=== PATIENT | female | born 2005 | race Caucasian/White ===

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

== ENCOUNTER 2023-01-05 18:31 | Emergency (ER) | payer OTHER, SELFPAY ==
--- NOTE | ~2023-01-05 | US_ITS ---
EXAMINATION: US PELVIS CLINICAL INFORMATION: Lower abdominal pain; question ovarian torsion; the last menstrual period was 12/24/2022. COMPARISON: Pelvic ultrasound dated 12/07/2020. TECHNIQUE: Ultrasound of the pelvis is performed using both transabdominal and transvaginal transducers along with Doppler. Transvaginal imaging is performed due to inadequate visualization transabdominally. FINDINGS: Uterus: The uterus is anteverted and measures 6.9 x 3.7 x 3.7 cm. No intrauterine or decidual reaction is noted. The double wall endometrial thickness is 1.4 mm. The uterus is smooth in contour and has normal myometrial echogenicity. No visible fibroid. Adnexa: Both ovaries are visualized. There is normal color flow to the adnexa. There is no ovarian torsion. There is a small to moderate amount of free fluid within the cul-de-sac. Right ovary measures 3.5 x 3.0 x 1.9 cm, volume 10.5 mL. A 1.2 x 1.0 x 1.2 cm right adnexal hypoechoic mass is seen, with peripheral color Doppler flow. Left ovary measures 4.5 x 3.8 x 2.3 cm, volume 20.6 mL. A 2.0 cm left ovarian dominant physiologic simple cyst is seen, which requires no imaging follow-up. US/US pelvic and transvaginal IMPRESSION: 1. A 1.2 cm hypoechoic mass is seen within the right adnexal region. The possibility of an ectopic is raised. Recommend correlation with a test and follow-up ultrasound imaging and/or beta hCG levels as clinically indicated. 2. There is moderate nonspecific free fluid in the cul-de-sac. 3. No finding is seen to suggest ovarian torsion. This critical result was discussed with Dr. Pastor at 9:30 PM on 01/05/2023, and it was ascertained that the content and urgency of this report was understood at the time of direct communication.
--- NOTE | ~2023-01-05 | CT_ITS ---
EXAMINATION: CT ABDOMEN AND PELVIS WITH CONTRAST CLINICAL INFORMATION: Abdominal pain. COMPARISON: Previous CT of the abdomen and pelvis November 2020 and pelvic ultrasound. TECHNIQUE: Multidetector volumetric images were obtained from the superior aspect of the liver through the pubic symphysis following administration 85 mL of Omnipaque 350 intravenous contrast. Sagittal and coronal reformatted images were obtained on the technologist's workstation. Oral Contrast: No. This CT examination was performed using dose optimization techniques as appropriate, variously including the following: *Automated exposure control. *Adjustment of mA and/or kV according to patient size (this includes techniques or standardized protocols for targeted exams where dose is matched to indication/reason for exam; i.e. extremities or head). *Use of iterative reconstruction technique. DLP: 404 mGy-cm FINDINGS: LUNG BASES: The visualized lung bases are unremarkable. LIVER, GALLBLADDER, AND BILIARY TREE: The liver is normal in size, shape, and attenuation. No focal hepatic lesion or biliary ductal dilatation is present. The gallbladder is unremarkable with no evidence of radiopaque gallstones, gallbladder wall thickening, or obvious pericholecystic inflammatory changes. PANCREAS: Unremarkable. SPLEEN: Unremarkable. ADRENAL GLANDS: Unremarkable. KIDNEYS AND URETERS: The kidneys are normal in size, shape, and attenuation. No hydronephrosis, hydroureter, or calculi seen. No perinephric stranding. BLADDER: Unremarkable. GASTROINTESTINAL TRACT: Large bowel is normal. The distal small bowel in the right lower quadrant is slightly distended, fluid-filled and may demonstrate mild increased wall thickening and enhancement. The appendix is not seen. ABDOMINAL WALL: No significant hernia is appreciated. LYMPH NODES: There is small bowel mesentery lymphadenopathy. VASCULAR: Unremarkable. PELVIC VISCERA: The uterus is unremarkable. No adnexal mass is seen. There is a [id number] amount of complex fluid seen in the pelvis. OSSEOUS STRUCTURES: Unremarkable. CT/CT abdomen pelvis w IV con IMPRESSION: [id number] amount of complex fluid in the pelvis. No adnexal mass. Differential would include recent hemorrhagic ruptured ovarian cyst, PID and ectopic . Slightly dilated fluid-filled distal small bowel with slightly thickened enhancing wall.. There are also prominent small bowel mesentery lymph nodes. Mesenteric adenitis and enteritis should also be considered. Appendix not seen. Fleischner guidelines were followed.
--- NOTE | ~2023-01-05 | US_ITS ---
EXAMINATION: US PELVIS CLINICAL INFORMATION: Lower abdominal pain; question ovarian torsion; the last menstrual period was 12/24/2022. COMPARISON: Pelvic ultrasound dated 12/07/2020. TECHNIQUE: Ultrasound of the pelvis is performed using both transabdominal and transvaginal transducers along with Doppler. Transvaginal imaging is performed due to inadequate visualization transabdominally. FINDINGS: Uterus: The uterus is anteverted and measures 6.9 x 3.7 x 3.7 cm. No intrauterine or decidual reaction is noted. The double wall endometrial thickness is 1.4 mm. The uterus is smooth in contour and has normal myometrial echogenicity. No visible fibroid. Adnexa: Both ovaries are visualized. There is normal color flow to the adnexa. There is no ovarian torsion. There is a small to moderate amount of free fluid within the cul-de-sac. Right ovary measures 3.5 x 3.0 x 1.9 cm, volume 10.5 mL. A 1.2 x 1.0 x 1.2 cm right adnexal hypoechoic mass is seen, with peripheral color Doppler flow. Left ovary measures 4.5 x 3.8 x 2.3 cm, volume 20.6 mL. A 2.0 cm left ovarian dominant physiologic simple cyst is seen, which requires no imaging follow-up. US/US pelvic ovarian doppler IMPRESSION: 1. A 1.2 cm hypoechoic mass is seen within the right adnexal region. The possibility of an ectopic is raised. Recommend correlation with a test and follow-up ultrasound imaging and/or beta hCG levels as clinically indicated. 2. There is moderate nonspecific free fluid in the cul-de-sac. 3. No finding is seen to suggest ovarian torsion. This critical result was discussed with Dr. Pastor at 9:30 PM on 01/05/2023, and it was ascertained that the content and urgency of this report was understood at the time of direct communication.
[2023-01-05 18:49] VITALS: BP 98/58; PULSE 91; RESP 16; TEMP 36.1; O2SAT 100; BMI 23.0
[2023-01-05 19:10] LABS: MANUAL DIFF FLAG NO
[2023-01-05 19:12] LABS: Basophils Absolute Auto 0.1 X10*3/uL (0.0-0.2); Basophils Percent Auto 0.6 % (0-2); Eosinophils Absolute Auto 0.2 X10*3/uL (0.0-0.4); Eosinophils Percent Auto 1.8 % (0-4); Hematocrit 39.1 % (37.0-47.0); Hemoglobin 13.2 g/dl (12.0-16.0); Lymphocytes Absolute Auto 2.2 X10*3/uL (1.2-4.9); Lymphocytes Percent Auto 21.3 % (20-40); Mean Corpuscular HGB Conc 33.8 g/dl (31.0-35.0); Mean Corpuscular Hemoglobin 30.8 pg (27.0-33.0); Mean Corpuscular Volume 91.4 fL (80.0-98.0); Mean Platelet Volume 11.4 fL (9.4-12.3); Monocytes Absolute Auto 0.6 X10*3/uL (0.1-1.2); Monocytes Percent Auto 6.1 % (2-11); Neutrophils Absolute Auto 7.1 x10*3/uL (2.0-8.3); Neutrophils Percent Auto 69.2 % (45-73); Platelet Count 274 X10*3/uL (160-400); Red Blood Count 4.28 X10*6/uL (4.20-5.50); Red Cell Distribution Width 12.2 % (11.0-16.0); White Blood Count 10.2 X10*3/uL (4.8-10.8)
[2023-01-05 19:13] LABS: Appearance Urine Clear; Color Urine Yellow; Glucose Urine UA Negative (Negative); Leukocyte Esterase Urine Moderate (2+) (Negative); Nitrite Urine Negative (Negative); UMIC TRIGGER UACC YES; Urine Blood Negative (Negative); Urine Ketones Trace mg/dL (Negative); Urine Protein Negative (Neg-Trace)
[2023-01-05 19:15] LABS: UPreg QC Valid YES; Urine Pregnancy NEGATIVE (NEGATIVE)
[2023-01-05 19:16] LABS: Bacteria Urine Trace (None Seen); Hyaline Casts Urine 0-2 /LPF (0-2); RBC Urine 0-2 /HPF (0-2); UACC Culture Trigger YES
[2023-01-05 19:28] LABS: Alanine Aminotransferase 13 U/L (0-31); Albumin Level 4.5 g/dL (3.5-5.0); Alkaline Phosphatase 74 U/L (39-117); Anion Gap 10 (12-20); Aspartate Amino Transferase 26 U/L (5-31); Bilirubin Total 0.2 mg/dL (0.0-1.0); Blood Urea Nitrogen 11 mg/dL (9-16); Calcium 9.5 mg/dL (8.4-10.2); Carbon Dioxide 26 mmol/L (22-29); Chloride 105 mmol/L (96-108); Creatinine Clr Calc Pharmacy 91.2; Estimated Glomerular Filt Rate > 60; Glucose Random 106 mg/dL (60-115); Lipase 23 U/L (8-78); Potassium 3.6 mmol/L (3.3-5.1); Sodium 137 mmol/L (135-145)
[2023-01-05 19:39] VITALS: BP 110/62; PULSE 99; RESP 18; TEMP 36.5; O2SAT 94
--- NOTE | 2023-01-05 20:08 | ED.ABDPAIN ---
HPI - Abdominal Pain General Chief Complaint: Abdominal Pain Stated Complaint: Lower abd pain Time Seen by Provider: 01/05/23 19:14 History of Present Illness HPI narrative: patient is a 17-year-old female presents today with having abdominal pain. Diffuse over the entire abdomen ongoing for few days. Worse today. There is no vaginal discharge. Patient is sexually active with 1 partner no condoms. Denies any fever chills. Denies any previous abdominal surgery. Positive nausea no vomiting. Patient is from home. No chest pain or diaphoresis Related Data Previous Rx's Medication Instructions Recorded acetaminophen 500 mg tablet 500 mg PO Q6H PRN pain or fever 10/17/20 (Tylenol Extra Strength) #20 tabs ibuprofen 400 mg tablet 400 mg PO Q6H 7 days #28 tabs 10/17/20 amoxicillin 875 mg-potassium 1 tab PO Q12H 5 days #10 tabs 03/15/21 clavulanate 125 mg tablet (Augmentin) dicyclomine 20 mg tablet 20 mg PO QID PRN abdominal pain 06/02/21 #20 tabs ondansetron 4 mg disintegrating 4 mg PO Q6-8H PRN nausea and 06/02/21 tablet vomiting #7 tabs ibuprofen 600 mg tablet 600 mg PO Q6H PRN pain #30 tabs 10/09/21 cyclobenzaprine 10 mg tablet 10 mg PO TID PRN muscle spasm #14 10/31/21 tabs diclofenac sodium 1 % topical gel 2 g topical QID #100 grams 10/31/21 (Voltaren Arthritis Pain) cefuroxime axetil 250 mg tablet 250 mg PO Q12H #14 tabs 12/20/21 loperamide 2 mg tablet (Imodium 2 mg PO Q6H PRN loose stool #14 05/05/22 A-D) tabs ondansetron 4 mg disintegrating 4 mg PO Q6-8H PRN nausea and 05/05/22 tablet vomiting #10 tabs nitrofurantoin 100 mg PO Q12H 5 days #10 caps 10/22/22 monohydrate/macrocrystals 100 mg capsule (Macrobid) phenazopyridine 200 mg tablet 200 mg PO TID PRN Burning with 10/22/22 (Pyridium) urination 6 doses #6 tabs cephalexin 500 mg capsule 500 mg PO Q8H 7 days #21 caps 01/05/23 ibuprofen 400 mg tablet 400 mg PO Q6H PRN pain #20 tabs 01/05/23 Allergies Allergy/AdvReac Type Severity Reaction Status Date / Time No Known Allergies Allergy Verified 12/24/22 14:05 Review of Systems Review of Systems no fever, no chills, positive abdominal oleg,n no discharge Yes all other systems are reviewed and are negative [facility] Past Medical History Attestation statement: The following information was validated with the patient. Medical History Headache Social History Social History (System 12/24/22 @ 14:05 by Ro Rosa) Alcohol intake: current Alcohol intake frequency: holidays/special occasions only Patient Tobacco Use Status: Never used Tobacco Smoked in Last 30 Days: No Substance Use Type: Marijuana Substance Use Frequency: Daily Advance Directives: No Advance Directives Information Provided: No Patient : No Physical Exam ED Vital Signs: Vital Signs - 24 hr 01/05/23 18:49 01/05/23 19:39 01/05/23 21:37 Temperature 97.0 F 97.7 F 98.8 F Pulse Rate 91 99 84 Respiratory Rate 16 18 18 Blood Pressure 98/58 L 110/62 101/62 Pulse Oximetry 100 94 97 Oxygen Delivery Method Room Air Room Air Room Air BMI result Body Mass Index 23.0 Appearance: Alert. Oriented X3. No acute distress. Eyes: Pupils equal, round and reactive to light. ENT: Pharynx normal. Neck: Normal inspection. Neck supple. No lymph nodes noted. No crepitus CVS: Normal heart rate and rhythm. Pulses normal. Normal S1 and S2 Respiratory: No respiratory distress. Breath sounds normal. No Wheezing. No rales Abdomen: Soft and nontender. No rigidity. No distention. good BS x4 Skin: Skin warm and dry. Normal skin color. Normal skin turgor. Extremities: No lower extremity edema. Neurovascular intact to all extremities. No Lacerations. No Rash Neuro: Oriented X 3. No motor deficit. No sensory deficit. Moving all extermities. No slurred speech Medical Decision Making Medical Decision Making MDM Narrative: patient presents today with having diffuse abdominal pain. Her last menstrual period was about 2 weeks ago. White count was normal. Patient's urine showed question UTI. Her test was negative there is no evidence for ectopic . Ultrasound showed good flow to bilateral ovaries. There is a question mass noted next to the ovary. Radiology read it as1. A 1.2 cm hypoechoic mass is seen within the right adnexal region. The possibility of an ectopic is raised. in setting of negative test it is unlikely Patient had an ectopic CT scan of the abdomen pelvis showed no acute evidence of appendicitis. There is small amount of free fluid in the abdomen consistent with having a hemorrhagic cyst which is more likely. Ultrasound also showed no evidence for torsion. Patient denies any vaginal discharge. The pain is diffuse less likely STD. Will treat patient with antibiotic and have patient Differential Diagnosis Differential Diagnoses: The differential diagnosis associated with the presentation includes Appendicitis, ovarian torsion, STD, obstruction, perforation, tubal ovarian abscess Admission/Observation Consideration of admission/observation: Escalation of care including admission/observation considered Lab Data MDM Lab Attestation statement: I reviewed the patient's lab results. 01/05/23 19:04 01/05/23 19:04 Labs: Lab Results 01/05/23 Range/Units 19:04 WBC 10.2 (4.8-10.8) X10*3/uL RBC 4.28 (4.20-5.50) X10*6/uL Hgb 13.2 (12.0-16.0) g/dl Hct 39.1 (37.0-47.0) % MCV 91.4 (80.0-98.0) fL MCH 30.8 (27.0-33.0) pg MCHC 33.8 (31.0-35.0) g/dl RDW 12.2 (11.0-16.0) % Plt Count 274 (160-400) X10*3/uL MPV 11.4 (9.4-12.3) fL Immature Gran % (Auto) 1.0 H (0.0-0.4) % Neut % (Auto) 69.2 (45-73) % Lymph % (Auto) 21.3 (20-40) % [place] % (Auto) 6.1 (2-11) % Eos % (Auto) 1.8 (0-4) % Baso % (Auto) 0.6 (0-2) % Lymph # (Auto) 2.2 (1.2-4.9) X10*3/uL [place] # (Auto) 0.6 (0.1-1.2) X10*3/uL Eos # (Auto) 0.2 (0.0-0.4) X10*3/uL Baso # (Auto) 0.1 (0.0-0.2) X10*3/uL Abs Immat Gran (auto) 0.10 H (0.00-0.03) X10*3/uL Absolute Neuts (auto) 7.1 (2.0-8.3) x10*3/uL Absolute Nucleated RBC 0.000 (0.0-0.012) X10*3/uL Nucleated RBC % (auto) 0.0 (0.0-0.2) /100WBC Sodium 137 (135-145) mmol/L Potassium 3.6 (3.3-5.1) mmol/L Chloride 105 (96-108) mmol/L Carbon Dioxide 26 (22-29) mmol/L Anion Gap 10 L (12-20) BUN 11 (9-16) mg/dL Creatinine 0.82 (0.5-1.4) mg/dL Estim Creat Clear Calc 91.2 Estimated GFR > 60 Random Glucose 106 (60-115) mg/dL Calcium 9.5 (8.4-10.2) mg/dL Total Bilirubin 0.2 (0.0-1.0) mg/dL AST 26 (5-31) U/L ALT 13 (0-31) U/L Alkaline Phosphatase 74 (39-117) U/L Total Protein 8.0 (6.5-8.0) g/dL Albumin 4.5 (3.5-5.0) g/dL Lipase 23 (8-78) U/L Urine Color Yellow Urine Appearance Clear Urine pH 8.0 (5.0-9.0) Ur Specific [place] 1.010 (1.005-1.025) Urine Protein Negative (Neg-Trace) mg/dL Urine Glucose (UA) Negative (Negative) mg/dL Urine Ketones Trace (Negative) mg/dL Urine Blood Negative (Negative) Urine Nitrite Negative (Negative) Ur Leukocyte Esterase Moderate (2+) H (Negative) Urine RBC 0-2 (0-2) /HPF Urine WBC 11-20 H (0-5) /HPF Ur Squamous Epith Cells 3-5 (0-2) /HPF Urine Bacteria Trace (None Seen) Hyaline Casts 0-2 (0-2) /LPF Urine Test NEGATIVE (NEGATIVE) Independent Interpretation I performed an independent interpretation of an: CT Scan Interpretation: no acute finding Radiology Impression Discussion of test interpretation with radiology: I have reviewed the radiologist's reading. Medications Administered Discontinued Medications Generic Name Dose Route Start Last Admin Trade Name Freq PRN Reason Stop Dose Admin Iohexol 100 ml 01/05/23 20:54 01/05/23 20:54 Iohexol 350 Mg/Ml 100 Ml Infus..Btl IV 01/05/23 20:55 85 ml ONCE ONE Administration Ketorolac Tromethamine 15 mg 01/05/23 20:09 01/05/23 20:57 Ketorolac Tromethamine 15 Mg/Ml Vial IVPUSH 01/05/23 20:10 15 mg ONCE ONE Administration Ondansetron HCl 4 mg 01/05/23 20:11 01/05/23 20:57 Ondansetron Hcl 4 Mg/2 Ml Vial IVPUSH 01/05/23 20:12 4 mg ONCE ONE Administration Discharge Plan Discharge Clinical Impression: Abdominal pain, Urinary tract infection Patient Disposition: Home, Self-Care Instructions: Ovarian Cyst (ED), Urinary Tract Infection in Women (DC) Prescriptions: New ibuprofen 400 mg tablet 400 mg PO Q6H PRN (Reason: pain) Qty: 20 0RF cephalexin 500 mg capsule 500 mg PO Q8H 7 Days Qty: 21 0RF No Action acetaminophen [Tylenol Extra Strength] 500 mg tablet 500 mg PO Q6H PRN (Reason: pain or fever) Qty: 20 0RF ibuprofen 400 mg tablet 400 mg PO Q6H 7 Days Qty: 28 0RF dicyclomine 20 mg tablet 20 mg PO QID PRN (Reason: abdominal pain) Qty: 20 0RF ondansetron 4 mg tablet,disintegrating 4 mg PO Q6-8H PRN (Reason: nausea and vomiting) Qty: 7 0RF cyclobenzaprine 10 mg tablet 10 mg PO TID PRN (Reason: muscle spasm) Qty: 14 0RF diclofenac sodium [Voltaren Arthritis Pain] 1 % gel 2 g topical QID Qty: 100 0RF Rx Instructions: apply to single elbow, wrist or hand; for hand includes palm/fingers/back of hand amoxicillin-pot clavulanate [Augmentin] 875-125 mg tablet 1 tab PO Q12H 5 Days Qty: 10 0RF ibuprofen 600 mg tablet 600 mg PO Q6H PRN (Reason: pain) Qty: 30 0RF cefuroxime axetil 250 mg tablet 250 mg PO Q12H Qty: 14 0RF ondansetron 4 mg tablet,disintegrating 4 mg PO Q6-8H PRN (Reason: nausea and vomiting) Qty: 10 0RF loperamide [Imodium A-D] 2 mg tablet 2 mg PO Q6H PRN (Reason: loose stool) Qty: 14 0RF nitrofurantoin monohyd/m-cryst [Macrobid] 100 mg capsule 100 mg PO Q12H 5 Days Qty: 10 0RF Rx Instructions: must administer with a meal/food phenazopyridine [Pyridium] 200 mg tablet 200 mg PO TID PRN (Reason: Burning with urination) Qty: 6 0RF Referrals: Ron Mccarty MD [Physician] - 01/07/23
--- NOTE | 2023-01-05 20:17 | PC.NURSE ---
IV line inserted in RAC, dry and intact.
[2023-01-05] MEDS: iohexoL 350 MG/ML 100 ML INFUS..BTL IV (20:54)
[2023-01-05] MEDS: Ketorolac Tromethamine 15 MG/ML VIAL IVPUSH (20:57)
[2023-01-05] MEDS: ondansetron HCL 4 MG/2 ML VIAL IVPUSH (20:57)
[2023-01-05 21:37] VITALS: BP 101/62; PULSE 84; RESP 18; TEMP 37.1; O2SAT 97
== END 2023-01-05 23:21 | disposition home or self-care (01) ==
PROVIDERS: Emergency Provider Emergency Medicine Emergency Medical Services; PCP Internal Medicine
DX: N39.0 Urinary tract infection, site not specified (principal); R10.30 Lower abdominal pain, unspecified; F12.90 Cannabis use, unspecified, uncomplicated; Z79.899 Other long term (current) drug therapy
CPT/HCPCS: 36415; 74177; 76830; 76856; 80053; 81001; 81025; 83690; 85025; 87086; 93975; 96374; 96375; 99284; 99285; J1885; J2405; Q9967

== ENCOUNTER 2023-02-27 09:19 | Emergency (ER) | payer OTHER, SELFPAY ==
[2023-02-27 09:36] VITALS: BP 112/60; PULSE 103; RESP 18; TEMP 36.8; O2SAT 98
--- NOTE | 2023-02-27 09:40 | ED.GENADULT ---
HPI - General Adult General Chief complaint: Upper Respiratory Symptoms Stated complaint: sore throat Time Seen by Provider: 02/27/23 09:28 Source: patient Mode of arrival: ambulatory Limitations: no limitations History of Present Illness HPI narrative: Patient is a 17 year old assigned female at with no reported medical history presenting to the emergency department today with a sore throat, headache, and body aches. Patient states that over the last day she has had a sore throat, body aches, and a headache. Patient denies any dizziness, lightheadedness, abdominal pain, nausea, vomiting, fever, chills, blurry vision, double vision, loss of vision, chest pain, difficulty breathing, shortness of breath, back pain, night sweats, pain with urination, increased urinary frequency, increased urinary urgency, blood in her urine or stool, syncope or a near syncopal episode, recent trauma or falls, bowel incontinence, bladder incontinence, bowel retention, bladder retention, or any other complaints at this time. Onset (ago): day(s) (1) Severity: mild Severity scale (1-10): 2 Relieving factors: none Exacerbating factors: none Associated symptoms: fever/chills Treatments prior to arrival: none Related Data Previous Rx's Medication Instructions Recorded acetaminophen 500 mg tablet 500 mg PO Q6H PRN pain or fever 10/17/20 (Tylenol Extra Strength) #20 tabs ibuprofen 400 mg tablet 400 mg PO Q6H 7 days #28 tabs 10/17/20 amoxicillin 875 mg-potassium 1 tab PO Q12H 5 days #10 tabs 03/15/21 clavulanate 125 mg tablet (Augmentin) dicyclomine 20 mg tablet 20 mg PO QID PRN abdominal pain 06/02/21 #20 tabs ondansetron 4 mg disintegrating 4 mg PO Q6-8H PRN nausea and 06/02/21 tablet vomiting #7 tabs ibuprofen 600 mg tablet 600 mg PO Q6H PRN pain #30 tabs 10/09/21 cyclobenzaprine 10 mg tablet 10 mg PO TID PRN muscle spasm #14 10/31/21 tabs diclofenac sodium 1 % topical gel 2 g topical QID #100 grams 10/31/21 (Voltaren Arthritis Pain) cefuroxime axetil 250 mg tablet 250 mg PO Q12H #14 tabs 12/20/21 loperamide 2 mg tablet (Imodium 2 mg PO Q6H PRN loose stool #14 05/05/22 A-D) tabs ondansetron 4 mg disintegrating 4 mg PO Q6-8H PRN nausea and 05/05/22 tablet vomiting #10 tabs nitrofurantoin 100 mg PO Q12H 5 days #10 caps 10/22/22 monohydrate/macrocrystals 100 mg capsule (Macrobid) phenazopyridine 200 mg tablet 200 mg PO TID PRN Burning with 10/22/22 (Pyridium) urination 6 doses #6 tabs cephalexin 500 mg capsule 500 mg PO Q8H 7 days #21 caps 01/05/23 ibuprofen 400 mg tablet 400 mg PO Q6H PRN pain #20 tabs 01/05/23 Allergies Allergy/AdvReac Type Severity Reaction Status Date / Time No Known Allergies Allergy Verified 12/24/22 14:05 Review of Systems Constitutional: Constitutional: Reports no additional constitutional complaints, Reports body ache(s), Denies chills, Reports fever(s), Reports headache(s) and Denies night sweats Eyes: Eyes: Reports no additional eye complaints, Denies blurry vision, Denies change in vision, Denies diplopia, Denies eye discharge, Denies loss of vision and Denies eye pain ENT: Denies dizziness and Reports headache(s) Cardiovascular: Cardiovascular: Reports no additional cardiovascular complaints, Denies chest pain, Denies lightheadedness, Denies Loss of Consciousness and Denies dyspnea Respiratory: Respiratory: Reports no additional respiratory complaints and Denies dyspnea Gastrointestinal: Gastrointestinal: Reports no additional gastrointestinal complaints, Denies abdominal pain, Denies melena, Denies hematochezia, Denies change in bowel habits and Denies change in stool character Genitourinary: Genitourinary: Denies hematuria, Denies urinary frequency, Denies dysuria, Denies urinary incontinence, Denies urinary hesitancy and Denies urinary urgency Musculoskeletal: Musculoskeletal: Reports no additional musculoskeletal complaints, Denies numbness and Denies tingling Neurologic: Denies dizziness, Reports headache(s), Denies loss of vision, Denies numbness and Denies tingling Psychiatric: Psychiatric: Reports no additional psychiatric complaints Endocrine: Endocrine: Reports no additional endocrine complaints Hematologic/Lymphatic: Hematologic/Lymphatic: Reports no additional hematologic/lymphatic complaints Allergic/Immunologic: Allergic/Immunologic: Reports no additional allergic/immunologic complaints [facility] Past Medical History Attestation statement: The following information was validated with the patient. Source: old records reviewed and nursing notes reviewed Onset Date is defined in the Problem List Problems that require an onset date and time if occurred within 24 hrs of arrival to the ED Aortic Dissection and Rupture; Neurologic impairment; Cardiopulmonary Arrest; Endotracheal Intubation; Insertion or Replacement of Mechanical Circulatory Assist Device Medical History Headache Social History Social History Alcohol intake: current Alcohol intake frequency: holidays/special occasions only Patient Tobacco Use Status: Never used Tobacco Substance Use Type: Marijuana Advance Directives: No Advance Directives Information Provided: Yes Physical Exam ED Vital Signs: Vital Signs - 24 hr 02/27/23 09:36 02/27/23 10:00 Temperature 98.3 F 98.3 F Pulse Rate 103 H 103 H Respiratory Rate 18 18 Blood Pressure 112/60 112/60 Pulse Oximetry 98 98 Oxygen Delivery Method Room Air Room Air BMI result Body Mass Index 23.3 Const General: cooperative, no acute distress, alert and awake Nutritional Appearance: well nourished Orientation/consciousness: patient oriented x3 Limitations: no limitations HENMT Head: Yes normal to inspection and Yes atraumatic Ears: hearing grossly normal bilaterally and external ears normal General nose exam: Normal external nose present, no nasal discharge noted and no epistaxis Face and sinus: Yes normal facial exam, No abrasion and No laceration Mouth: Normal oral and palatal mucosa present, no drooling and no muffled voice Eyes General: appearance normal, both eyes and all related structures Periorbital: periorbital findings normal Eyelids: Yes eyelids normal Conjunctivae: conjunctivae normal Pupils: Equal, round and reactive pupils present EOM: EOMs intact bilaterally Neck Neck: Yes normal visual inspection, Yes full ROM and Yes no lymphadenopathy Chest Chest palpation & inspection: normal inspection of the chest Resp Effort & Inspection: normal respiratory effort and able to speak in complete sentences GI Inspection: Yes normal to inspection Neuro General: patient oriented x3 and moves all extremities Cranial nerves: Yes Equal, round and reactive pupils present Cognition (Neuro): normal cognition Motor exam (neuro): 5/5 motor strength present throughout Sensory Exam: Normal double simultaneous stimulation for sensation Coordination: [id number] test normal Extrem General: Yes normal to inspection, Yes full ROM and Yes capillary refill normal Psych Appearance: grossly normal Mental Status: mental status grossly normal Affect: normal affect Attitude: cooperative Thought process: Normal thought process present Thought content: Normal thought content present Insight: Good insight present (Psych) Medical Decision Making Medical Decision Making [facility] Narrative: Patient is a 17 year old assigned female at with no reported medical history presenting to the emergency department today with a sore throat, headache, and body aches. Patient's physical exam was unremarkable. Patient's COVID-19 test was positive. Patient's influenza and RSV tests were negative. I explained my physical exam findings as well as all test results to the patient. I answered all questions asked by the patient. I stressed the importance of the patient taking her medication as prescribed. I stressed the importance of the patient following up with her primary care provider. I stressed the importance of the patient returning to the emergency department immediately if her symptoms were to worsen or if she were to develop any dizziness, shortness of breath, difficulty breathing, chest pain, blurry vision, loss of vision, nausea, vomiting, abdominal pain, fever, chills, back pain, or any other complaints. Patient verbalized agreement and understanding with this treatment plan and discharge. Differential Diagnosis Differential Diagnoses: The differential diagnosis associated with the presentation includes Viral illness URI COVID-19 Influenza RSV Admission/Observation Consideration of admission/observation: Escalation of care including admission/observation considered Patient would have been admitted to the hospital had her work up had any findings where hospital admission was appropriate and her clinical presentation warranted hospital admission. Lab Data [facility] Lab Attestation statement: I reviewed the patient's lab results. My interpretation of these results are in the [facility] Rationale portion of this note. Labs: Lab Results 02/27/23 Range/Units 09:39 Influenza Type A (PCR) NEGATIVE (Negative) Influenza Type B (PCR) NEGATIVE (Negative) RSV RNA Qual (PCR) NEGATIVE (Negative) SARS-CoV-2 RNA (RT-PCR) POSITIVE A (Negative) S. pyogenes GrpA SONALI Negative (Negative) Discharge Plan Discharge Clinical Impression: COVID-19 Patient Disposition: Home, Self-Care Instructions: COVID-19 (Coronavirus Disease 2019) (ED) Additional Instructions: Follow up with your primary care provider. Return to the emergency department immediately if your symptoms worsen or if you develop any dizziness, shortness of breath, difficulty breathing, chest pain, blurry vision, loss of vision, nausea, vomiting, abdominal pain, fever, chills, back pain, or any other complaints. Prescriptions: No Action acetaminophen [Tylenol Extra Strength] 500 mg tablet 500 mg PO Q6H PRN (Reason: pain or fever) Qty: 20 0RF ibuprofen 400 mg tablet 400 mg PO Q6H 7 Days Qty: 28 0RF dicyclomine 20 mg tablet 20 mg PO QID PRN (Reason: abdominal pain) Qty: 20 0RF ondansetron 4 mg tablet,disintegrating 4 mg PO Q6-8H PRN (Reason: nausea and vomiting) Qty: 7 0RF cyclobenzaprine 10 mg tablet 10 mg PO TID PRN (Reason: muscle spasm) Qty: 14 0RF diclofenac sodium [Voltaren Arthritis Pain] 1 % gel 2 g topical QID Qty: 100 0RF Rx Instructions: apply to single elbow, wrist or hand; for hand includes palm/fingers/back of hand amoxicillin-pot clavulanate [Augmentin] 875-125 mg tablet 1 tab PO Q12H 5 Days Qty: 10 0RF ibuprofen 600 mg tablet 600 mg PO Q6H PRN (Reason: pain) Qty: 30 0RF cefuroxime axetil 250 mg tablet 250 mg PO Q12H Qty: 14 0RF ondansetron 4 mg tablet,disintegrating 4 mg PO Q6-8H PRN (Reason: nausea and vomiting) Qty: 10 0RF loperamide [Imodium A-D] 2 mg tablet 2 mg PO Q6H PRN (Reason: loose stool) Qty: 14 0RF nitrofurantoin monohyd/m-cryst [Macrobid] 100 mg capsule 100 mg PO Q12H 5 Days Qty: 10 0RF Rx Instructions: must administer with a meal/food phenazopyridine [Pyridium] 200 mg tablet 200 mg PO TID PRN (Reason: Burning with urination) Qty: 6 0RF ibuprofen 400 mg tablet 400 mg PO Q6H PRN (Reason: pain) Qty: 20 0RF cephalexin 500 mg capsule 500 mg PO Q8H 7 Days Qty: 21 0RF Referrals: Susan Salazar MD [Primary Care Provider] - Stand Alone Forms: Work/School Release Interventions: ED Discharge Assessment Last Done: 02/27/23 11:49 Discharge Date/Time: 02/27/23 11:50 Print Language: Swedish
[2023-02-27 10:00] VITALS: BP 112/60; PULSE 103; RESP 18; TEMP 36.8; O2SAT 98; BMI 23.3
== END 2023-02-27 11:50 | disposition home or self-care (01) ==
PROVIDERS: Emergency Provider Student in an Organized Health Care Education/Training Program; PCP Internal Medicine
DX: U07.1 COVID-19 (principal); J02.9 Acute pharyngitis, unspecified
CPT/HCPCS: 0241U; 87651; 99283

== ENCOUNTER 2023-08-15 06:40 | Emergency (ER) | payer OTHER, SELFPAY ==
[2023-08-15 06:51] VITALS: BP 108/69; PULSE 107; RESP 19; TEMP 36.5; O2SAT 100; BMI 23.0
--- NOTE | 2023-08-15 07:23 | ED_ITS ---
HPI - Female Genitourinary General Chief complaint: Urogenital-Female Stated complaint: left side pain, vaginal bleeding Time Seen by Provider: 08/15/23 06:52 Source: patient Mode of arrival: ambulatory Limitations: no limitations History of Present Illness HPI Narrative: Patient is a 17-year-old female who presents to the emergency department for evaluation of left flank pain that is radiating all across her lower back. Reports onset at 04:00 this morning that awoke her from her sleep. She admits to having urinary frequency but denies dysuria or hematuria. She reports her last menstrual cycle was July 11-. She admits to light vaginal bleeding over the past 2 days but she reports ?I doubt it is my period?. She denies possibility of but she is currently sexually active. She admits to a history of urinary tract infections. Denies fevers, chills, nausea, vomiting, diarrhea, constipation, concern for sexually transmitted infections. Related Data Previous Rx's ?Medication ?Instructions ?Recorded acetaminophen 500 mg tablet 500 mg PO Q6H PRN pain or fever 10/17/20 (Tylenol Extra Strength) #20 tabs ibuprofen 400 mg tablet 400 mg PO Q6H 7 days #28 tabs 10/17/20 amoxicillin 875 mg-potassium 1 tab PO Q12H 5 days #10 tabs 03/15/21 clavulanate 125 mg tablet (Augmentin) dicyclomine 20 mg tablet 20 mg PO QID PRN abdominal pain 06/02/21 #20 tabs ondansetron 4 mg disintegrating 4 mg PO Q6-8H PRN nausea and 06/02/21 tablet vomiting #7 tabs ibuprofen 600 mg tablet 600 mg PO Q6H PRN pain #30 tabs 10/09/21 cyclobenzaprine 10 mg tablet 10 mg PO TID PRN muscle spasm #14 10/31/21 tabs diclofenac sodium 1 % topical gel 2 g topical QID #100 grams 10/31/21 (Voltaren Arthritis Pain) cefuroxime axetil 250 mg tablet 250 mg PO Q12H #14 tabs 12/20/21 loperamide 2 mg tablet (Imodium 2 mg PO Q6H PRN loose stool #14 05/05/22 A-D) tabs ondansetron 4 mg disintegrating 4 mg PO Q6-8H PRN nausea and 05/05/22 tablet vomiting #10 tabs nitrofurantoin 100 mg PO Q12H 5 days #10 caps 10/22/22 monohydrate/macrocrystals 100 mg capsule (Macrobid) phenazopyridine 200 mg tablet 200 mg PO TID PRN Burning with 10/22/22 (Pyridium) urination 6 doses #6 tabs cephalexin 500 mg capsule 500 mg PO Q8H 7 days #21 caps 01/05/23 ibuprofen 400 mg tablet 400 mg PO Q6H PRN pain #20 tabs 01/05/23 Allergies Allergy/AdvReac Type Severity Reaction Status Date / Time No Known Allergies Allergy Verified 08/15/23 06:53 Review of Systems 2 Review of Systems: Yes all other systems are reviewed and are negative [facility] Past Medical History Attestation statement: The following information was validated with the patient. Source: old records reviewed Medical History Headache Social History Social History Alcohol intake: current Alcohol intake frequency: holidays/special occasions only Patient Tobacco Use Status: Never used Tobacco Substance Use Type: Marijuana Advance Directives: No Advance Directives Information Provided: Yes Do you have a plan to hurt others: No Plan Physical Exam 2 Vital Signs: Vital Signs: Last Vital Signs Temp 97.7 F 08/15/23 06:51 Pulse 107 H 08/15/23 06:51 Resp 19 08/15/23 06:51 BP 108/69 08/15/23 06:51 Pulse Ox 100 08/15/23 06:51 O2 Del Method Room Air 08/15/23 06:51 BMI result Body Mass Index 23.0 Appearance: Alert.?Oriented to person, place and time. No acute distress.?Normal affect. Eyes: Pupils equal, round and reactive to light.? ENT: Pharynx normal.?? Neck: Normal inspection.? Neck supple.?? CVS: Heart sounds normal. Normal heart rate and rhythm.? Pulses normal.?? Respiratory: No respiratory distress.? Lung sounds clear to auscultation bilaterally?? Abdomen: Soft and non-tender. Normoactive bowel sounds. Left CVA tenderness Skin: Skin warm and dry.? Normal skin color.? .?? Extremities: No lower extremity edema.? Neuro: Moves all extremities spontaneously. Sensation intact bilaterally. Ambulates with normal steady gait. Course Reevaluation(s) Reevaluation #1: CBC reveals a mild leukocytosis of 12.7 with left shift, no electrolyte derangement, no GUERO, hCG negative, Urinalysis consistent with acute urinary tract infection nitrite positive, history of E coli urinary tract infection resistant to ampicillin and Bactrim. Patient receive a dose of ceftriaxone IV in the ED, she is tolerating oral intake, I suspect that this is an early pyelonephritis as she is experiencing acute left flank pain, cover with cephalexin 500mg PO twice daily for 14 days. Medical Decision Making Medical Decision Making MDM Narrative: Patient is a 17-year-old female who presents emergency department for evaluation of left flank pain and urinary frequency as per HPI. She arrives mildly tachycardic which may be secondary to pain, she is afebrile, overall appears well. She does have left CVA tenderness. Will obtain CBC to evaluate for leukocytosis/ anemia, CMP and lipase to evaluate for abnormal electrolytes /abnormal renal function/ abnormal hepatic/biliary function, hCG and Urinalysis. Differential Diagnosis Differential Diagnoses: The differential diagnosis associated with the presentation includes (Urinary tract infection, pyelonephritis, hydronephrosis, ureteral calculi, muscular pain, ovarian cyst, ectopic . Suspect less likely ovarian torsion) Admission/Observation Consideration of admission/observation: Escalation of care including admission/observation considered Lab Data 08/15/23 07:36 08/15/23 07:36 Labs: Lab Results 08/15/23 Range/Units 07:36 WBC 12.7 H (4.8-10.8) X10*3/uL RBC 4.16 L (4.20-5.50) X10*6/uL Hgb 13.1 (12.0-16.0) g/dl Hct 37.3 (37.0-47.0) % MCV 89.7 (80.0-98.0) fL MCH 31.5 (27.0-33.0) pg MCHC 35.1 H (31.0-35.0) g/dl RDW 12.7 (11.0-16.0) % Plt Count 244 (160-400) X10*3/uL MPV 11.2 (9.4-12.3) fL Immature Gran % (Auto) 0.4 (0.0-0.4) % Neut % (Auto) 83.2 H (45-73) % Lymph % (Auto) 9.0 L (20-40) % [place] % (Auto) 5.8 (2-11) % Eos % (Auto) 1.3 (0-4) % Baso % (Auto) 0.3 (0-2) % Lymph # (Auto) 1.1 L (1.2-4.9) X10*3/uL [place] # (Auto) 0.7 (0.1-1.2) X10*3/uL Eos # (Auto) 0.2 (0.0-0.4) X10*3/uL Baso # (Auto) 0.0 (0.0-0.2) X10*3/uL Abs Immat Gran (auto) 0.05 H (0.00-0.03) X10*3/uL Absolute Neuts (auto) 10.6 H (2.0-8.3) x10*3/uL Absolute Nucleated RBC 0.000 (0.0-0.012) X10*3/uL Nucleated RBC % (auto) 0.0 (0.0-0.2) /100WBC Sodium 140 (135-145) mmol/L Potassium 3.8 (3.3-5.1) mmol/L Chloride 111 H (96-108) mmol/L Carbon Dioxide 21 L (22-29) mmol/L Anion Gap 12 (12-20) BUN 11 (9-16) mg/dL Creatinine 0.91 (0.5-1.4) mg/dL Estim Creat Clear Calc 82.2 Estimated GFR > 60 Random Glucose 91 (60-115) mg/dL Calcium 9.5 (8.4-10.2) mg/dL Total Bilirubin 0.6 (0.0-1.0) mg/dL AST 22 (5-31) U/L ALT 12 (0-31) U/L Alkaline Phosphatase 73 (39-117) U/L Total Protein 7.8 (6.5-8.0) g/dL Albumin 4.3 (3.5-5.0) g/dL Beta HCG, Quant < 2 mIU/mL Urine Color Yellow Urine Appearance Turbid Urine pH 6.0 (5.0-9.0) Ur Specific [place] 1.015 (1.005-1.025) Urine Protein 30 (1+) H (Neg-Trace) mg/dL Urine Glucose (UA) Negative (Negative) mg/dL Urine Ketones Negative (Negative) mg/dL Urine Blood Large (3+) H (Negative) Urine Nitrite Positive H (Negative) Ur Leukocyte Esterase Large (3+) H (Negative) Urine RBC 3-5 H (0-2) /HPF Urine WBC >50 H (0-5) /HPF Ur Squamous Epith Cells 0-2 (0-2) /HPF Urine Bacteria 4+ (None Seen) Hyaline Casts 0-2 (0-2) /LPF Urine Test NEGATIVE (NEGATIVE) Discharge Plan Discharge Clinical Impression: Pyelonephritis, Urinary tract infection Patient Disposition: Home, Self-Care Instructions: Urinary Tract Infection in Women (ED) Additional Instructions: Your testing today indicates that you have a urinary tract infection, given your area of pain, there is concern that this infection reasonable has began to spread to your kidney. You received a dose of IV antibiotics in the emergency department. A prescription for remaining antibiotics were sent to your pharmacy, please begin taking these antibiotics by mouth tomorrow. To prevent urinary tract infections be sure that you are staying plenty hydrated drinking a lot of water, a shoe that you are wiping from front to back, urinating regularly and not holding your pee, avoid any scented products or soaps to the genital region, urinate immediately after having sexual intercourse. Prescriptions: No Action acetaminophen [Tylenol Extra Strength] 500 mg tablet 500 mg PO Q6H PRN (Reason: pain or fever) Qty: 20 0RF ibuprofen 400 mg tablet 400 mg PO Q6H 7 Days Qty: 28 0RF dicyclomine 20 mg tablet 20 mg PO QID PRN (Reason: abdominal pain) Qty: 20 0RF ondansetron 4 mg tablet,disintegrating 4 mg PO Q6-8H PRN (Reason: nausea and vomiting) Qty: 7 0RF cyclobenzaprine 10 mg tablet 10 mg PO TID PRN (Reason: muscle spasm) Qty: 14 0RF diclofenac sodium [Voltaren Arthritis Pain] 1 % gel 2 g topical QID Qty: 100 0RF Rx Instructions: apply to single elbow, wrist or hand; for hand includes palm/fingers/back of hand amoxicillin-pot clavulanate [Augmentin] 875-125 mg tablet 1 tab PO Q12H 5 Days Qty: 10 0RF ibuprofen 600 mg tablet 600 mg PO Q6H PRN (Reason: pain) Qty: 30 0RF cefuroxime axetil 250 mg tablet 250 mg PO Q12H Qty: 14 0RF ondansetron 4 mg tablet,disintegrating 4 mg PO Q6-8H PRN (Reason: nausea and vomiting) Qty: 10 0RF loperamide [Imodium A-D] 2 mg tablet 2 mg PO Q6H PRN (Reason: loose stool) Qty: 14 0RF nitrofurantoin monohyd/m-cryst [Macrobid] 100 mg capsule 100 mg PO Q12H 5 Days Qty: 10 0RF Rx Instructions: must administer with a meal/food phenazopyridine [Pyridium] 200 mg tablet 200 mg PO TID PRN (Reason: Burning with urination) Qty: 6 0RF ibuprofen 400 mg tablet 400 mg PO Q6H PRN (Reason: pain) Qty: 20 0RF cephalexin 500 mg capsule 500 mg PO Q8H 7 Days Qty: 21 0RF Referrals: Susan Salazar MD [Primary Care Provider] - Print Language: Guinean
[2023-08-15 07:42] LABS: MANUAL DIFF FLAG NO
[2023-08-15 07:44] LABS: Appearance Urine Turbid; Color Urine Yellow; Glucose Urine UA Negative (Negative); Leukocyte Esterase Urine Large (3+) (Negative); Nitrite Urine Positive (Negative); Specific Gravity - Urine 1.015 (1.005-1.025); UMIC TRIGGER UACC YES; Urine Blood Large (3+) (Negative); Urine Ketones Negative (Negative); Urine Protein 30 (1+) mg/dL (Neg-Trace)
--- NOTE | 2023-08-15 07:45 | PC.NURSE ---
a&ox4. vss and up to date. pt presents ot the ED w/ sudden onset left sided flank pain that radiates to the right flank. pt verbalizes being awoken from sleep. rating pain a 10/10. denies n/v/d/fever/chills. pt also verbalizing slight hematuria/dysuria/frequency. 20gIV placed in the right AC - labs obtained/sent to lab. urine also obtained/sent. pt seen by ED provider/aware of plan of care moving forward. no sob/wob noted. respirations even/unlabored. plan of care ongoing. call palmer placed within reach.
[2023-08-15 07:46] LABS: UPreg QC Valid YES; Urine Pregnancy NEGATIVE (NEGATIVE)
[2023-08-15 07:47] LABS: Basophils Percent Auto 0.3 % (0-2); Eosinophils Absolute Auto 0.2 X10*3/uL (0.0-0.4); Eosinophils Percent Auto 1.3 % (0-4); Hematocrit 37.3 % (37.0-47.0); Hemoglobin 13.1 g/dl (12.0-16.0); Imm Gran Abs Auto 0.05 X10*3/uL (0.00-0.03); Imm Gran Pct Auto 0.4 % (0.0-0.4); Lymphocytes Absolute Auto 1.1 X10*3/uL (1.2-4.9); Mean Corpuscular HGB Conc 35.1 g/dl (31.0-35.0); Mean Corpuscular Hemoglobin 31.5 pg (27.0-33.0); Mean Corpuscular Volume 89.7 fL (80.0-98.0); Mean Platelet Volume 11.2 fL (9.4-12.3); Monocytes Absolute Auto 0.7 X10*3/uL (0.1-1.2); Monocytes Percent Auto 5.8 % (2-11); Neutrophils Absolute Auto 10.6 x10*3/uL (2.0-8.3); Neutrophils Percent Auto 83.2 % (45-73); Platelet Count 244 X10*3/uL (160-400); Red Blood Count 4.16 X10*6/uL (4.20-5.50); Red Cell Distribution Width 12.7 % (11.0-16.0); White Blood Count 12.7 X10*3/uL (4.8-10.8)
[2023-08-15 08:00] VITALS: BP 94/59; PULSE 87; TEMP 37.1; O2SAT 100
[2023-08-15 08:02] LABS: Alanine Aminotransferase 12 U/L (0-31); Albumin Level 4.3 g/dL (3.5-5.0); Alkaline Phosphatase 73 U/L (39-117); Anion Gap 12 (12-20); Aspartate Amino Transferase 22 U/L (5-31); Bilirubin Total 0.6 mg/dL (0.0-1.0); Blood Urea Nitrogen 11 mg/dL (9-16); Calcium 9.5 mg/dL (8.4-10.2); Carbon Dioxide 21 mmol/L (22-29); Chloride 111 mmol/L (96-108); Creatinine Clr Calc Pharmacy 82.2; Estimated Glomerular Filt Rate > 60; Glucose Random 91 mg/dL (60-115); Potassium 3.8 mmol/L (3.3-5.1); Sodium 140 mmol/L (135-145); Total Protein 7.8 g/dL (6.5-8.0)
[2023-08-15 08:07] LABS: HCG Quantitative < 2 mIU/mL
[2023-08-15 08:11] LABS: Bacteria Urine 4+ (None Seen); Hyaline Casts Urine 0-2 /LPF (0-2); Squamous Epithelial Cell Urine 0-2 /HPF (0-2); UACC Culture Trigger YES; WBC Urine >50 /HPF (0-5)
[2023-08-15] MEDS: Ketorolac Tromethamine 15 MG/ML VIAL IVPUSH (08:15)
[2023-08-15] MEDS: cefTRIAXone sodium 1 GM in 0.9 % Sodium Chloride 50 ML IV (08:15)
--- NOTE | 2023-08-15 08:19 | PC.NURSE ---
medication administered per provider order. effectiveness pending.
[2023-08-15 09:44] VITALS: BP 93/41; PULSE 66; TEMP 37.1; O2SAT 100
--- NOTE | 2023-08-15 09:50 | PC.NURSE ---
pt able to tolerate PO challenge w/o difficulty.
[2023-08-15 09:51] VITALS: BP 93/41; PULSE 66; RESP 19; TEMP 37.1; O2SAT 100
== END 2023-08-15 09:51 | disposition home or self-care (01) ==
PROVIDERS: Nurse Practitioner Family; Emergency Provider Emergency Medicine; PCP Internal Medicine
DX: N12 Tubulo-interstitial nephritis, not specified as acute or chronic (principal); N39.0 Urinary tract infection, site not specified; B96.20 Unspecified Escherichia coli [E. coli] as the cause of diseases classified elsewhere; R10.32 Left lower quadrant pain; M54.50 Low back pain, unspecified; R35.0 Frequency of micturition; F12.90 Cannabis use, unspecified, uncomplicated; Z87.440 Personal history of urinary (tract) infections
CPT/HCPCS: 36415; 80053; 81001; 81025; 84702; 85025; 87086; 87088; 87186; 96365; 96375; 99284; 99285; J0696; J1885

== ENCOUNTER 2023-09-26 06:50 | Emergency (ER) | payer OTHER, SELFPAY ==
[2023-09-26 07:06] VITALS: BP 108/62; PULSE 78; RESP 18; TEMP 36.6; O2SAT 100; BMI 21.5
--- NOTE | 2023-09-26 07:46 | ED_ITS ---
HPI - General Adult General Chief complaint: General Medical Stated complaint: ?UTI Time Seen by Provider: 09/26/23 07:03 Source: patient Mode of arrival: ambulatory Limitations: no limitations History of Present Illness ED Provider: Tanya ADAMS HPI narrative: This is a 17-year-old female presenting with urinary burning and frequency ongoing for the last 2 days. Patient reports feels like typical UTI. Patient reports that she is concerned for sexually transmitted infections and would like treatment for them prior to getting results. Denies vaginal discharge, headache, vision changes, chest pain, shortness of breath, nausea, vomiting, abdominal pain, fevers, chills, flank pain, back pain. She does not think she is she is tells me. Related Data Previous Rx's ?Medication ?Instructions ?Recorded acetaminophen 500 mg tablet 500 mg PO Q6H PRN pain or fever 10/17/20 (Tylenol Extra Strength) #20 tabs ibuprofen 400 mg tablet 400 mg PO Q6H 7 days #28 tabs 10/17/20 amoxicillin 875 mg-potassium 1 tab PO Q12H 5 days #10 tabs 03/15/21 clavulanate 125 mg tablet (Augmentin) dicyclomine 20 mg tablet 20 mg PO QID PRN abdominal pain 06/02/21 #20 tabs ondansetron 4 mg disintegrating 4 mg PO Q6-8H PRN nausea and 06/02/21 tablet vomiting #7 tabs ibuprofen 600 mg tablet 600 mg PO Q6H PRN pain #30 tabs 10/09/21 cyclobenzaprine 10 mg tablet 10 mg PO TID PRN muscle spasm #14 10/31/21 tabs diclofenac sodium 1 % topical gel 2 g topical QID #100 grams 10/31/21 (Voltaren Arthritis Pain) cefuroxime axetil 250 mg tablet 250 mg PO Q12H #14 tabs 12/20/21 loperamide 2 mg tablet (Imodium 2 mg PO Q6H PRN loose stool #14 05/05/22 A-D) tabs ondansetron 4 mg disintegrating 4 mg PO Q6-8H PRN nausea and 05/05/22 tablet vomiting #10 tabs nitrofurantoin 100 mg PO Q12H 5 days #10 caps 10/22/22 monohydrate/macrocrystals 100 mg capsule (Macrobid) phenazopyridine 200 mg tablet 200 mg PO TID PRN Burning with 10/22/22 (Pyridium) urination 6 doses #6 tabs cephalexin 500 mg capsule 500 mg PO Q8H 7 days #21 caps 01/05/23 ibuprofen 400 mg tablet 400 mg PO Q6H PRN pain #20 tabs 01/05/23 cefuroxime axetil 500 mg tablet 500 mg PO BID 13 days #26 tabs 08/15/23 cefuroxime axetil 250 mg tablet 250 mg PO BID 7 days #14 tabs 09/26/23 doxycycline hyclate 100 mg capsule 100 mg PO BID 7 days #14 caps 09/26/23 metronidazole 500 mg tablet 500 mg PO BID 7 days #14 tabs 09/26/23 Allergies Allergy/AdvReac Type Severity Reaction Status Date / Time No Known Allergies Allergy Verified 09/26/23 07:09 Review of Systems Review of Systems: Yes all other systems are reviewed and are negative [facility] Past Medical History Attestation statement: The following information was validated with the patient. Source: old records reviewed and nursing notes reviewed Medical History Headache Social History Social History Alcohol intake: current Alcohol intake frequency: holidays/special occasions only Patient Tobacco Use Status: Never used Tobacco Substance Use Type: Marijuana Advance Directives: No Advance Directives Information Provided: Yes Physical Exam ED Vital Signs: Vital Signs - 24 hr 09/26/23 07:06 Temperature 97.8 F Pulse Rate 78 Respiratory Rate 18 Blood Pressure 108/62 Pulse Oximetry 100 Oxygen Delivery Method Room Air BMI result Body Mass Index 21.5 vss Appearance: Alert.? Oriented X3.? No acute distress.? Head: Normocephalic, atraumatic, no step-offs or deformities Eyes: Pupils equal, round and reactive to light.? Neck: Normal inspection.? Neck supple.? CVS: Normal heart rate and rhythm.? Pulses normal.? Respiratory: No respiratory distress.? Breath sounds normal.? Abdomen: Soft and nontender.? Skin: Skin warm and dry.? Normal skin color.? Normal skin turgor.? Extremities: No lower extremity edema.? No calf ttp. 5/5 strength to bilateral upper and lower extremities Back: No midline tenderness, no C-spine tenderness, full range of motion, no CVA tenderness bilaterally Neuro: Oriented X 3.? No motor deficit.? No sensory deficit. CN 2-12 intact Course Reevaluation(s) Reevaluation #1: Patient's UA with large amount of leukocyte esterases, 1+ bacteria, moderate red blood cells UTI symptoms present will treat for UTI. Will also treat for Trichomonas, BV and gonorrhea chlamydia. Educated patient on diagnosis and treatment plan, answered all question, patient verbalizes understanding. At this time patient will be discharged home, advised to return with new or worsening symptoms. Educated on worrisome signs and symptoms and when to return. At this time I feel comfortable discharge home. Time: 09:03 Medications Administered Discontinued Medications Generic Name Dose Route Start Last Admin Trade Name Freq PRN Reason Stop Dose Admin Ceftriaxone Sodium 500 mg 09/26/23 07:32 09/26/23 08:50 Ceftriaxone Sodium 500 Mg Vial IM 09/26/23 07:33 500 mg ONCE ONE Administration Doxycycline Monohydrate 100 mg 09/26/23 07:32 09/26/23 08:50 Doxycycline Monohydrate 100 Mg Capsule PO 09/26/23 07:33 100 mg ONCE ONE Administration Metronidazole 500 mg 09/26/23 08:02 09/26/23 08:50 Metronidazole 500 Mg Tablet PO 09/26/23 08:03 500 mg ONCE ONE Administration Medical Decision Making Medical Decision Making MDM Narrative: 17-year-old female presents for concerns of urinary tract infection versus STD. Physical exam benign patient well-appearing. Vital signs stable. History and physical exam concerning for UTI versus cystitis versus sexually transmitted infection. Unlikely pyelonephritis, obstructing uropathy, acute abdomen, appendicitis, diverticulitis, cholecystitis, pancreatitis, . History and physical exam not consistent with ectopic or torsion. Plan urine, gonorrhea and chlamydia testing. Patient agrees to prophylactic treatment for gonorrhea, chlamydia and trichomonas. 500mg IM ceftriaxone has been given here and scripts for doxycycline 100 mg po BID X 7 days and metronidazole 500 mg po BID X 7 days have been given to the patient. Educated on safe sex practices, full pannel STD testing and speaking to? partners on possible STD. Differential Diagnosis Differential Diagnoses: The differential diagnosis associated with the presentation includes History and physical exam concerning for UTI versus cystitis versus sexually transmitted infection. Unlikely pyelonephritis, obstructing uropathy, acute abdomen, appendicitis, diverticulitis, cholecystitis, pancreatitis, . History and physical exam not consistent with ectopic or torsion. Admission/Observation Consideration of admission/observation: Escalation of care including admission/observation considered Lab Data MDM Lab Attestation statement: I reviewed the patient's lab results. Labs: Lab Results 09/26/23 Range/Units 08:34 Urine Color Yellow Urine Appearance Cloudy Urine pH 6.0 (5.0-9.0) Ur Specific [place] 1.015 (1.005-1.025) Urine Protein 30 (1+) H (Neg-Trace) mg/dL Urine Glucose (UA) Negative (Negative) mg/dL Urine Ketones Negative (Negative) mg/dL Urine Blood Moderate (2+) H (Negative) Urine Nitrite Negative (Negative) Ur Leukocyte Esterase Large (3+) H (Negative) Urine RBC 6-10 H (0-2) /HPF Urine WBC >50 H (0-5) /HPF Ur Squamous Epith Cells 11-20 (0-2) /HPF Urine Bacteria 1+ (None Seen) Hyaline Casts 0-2 (0-2) /LPF Urine Test NEGATIVE (NEGATIVE) External Record Review External record reviewed: Outpatient record, Prior outpatient labs and Prior outpatient radiology Prescription Management I considered prescription management with: Antibiotic Discharge Plan Discharge Clinical Impression: Screen for STD (sexually transmitted disease), UTI (urinary tract infection) Patient Disposition: Home, Self-Care Instructions: Urinary Tract Infection in Older Adults (ED) Additional Instructions: Take your medications as prescribed. If you were prescribed antibiotics today, it is important that you take your medication to their entirety, do not skip any doses, do not finish them early. Follow-up with your primary care provider this week. Return to the emergency department with new or worsening symptoms. Such as fevers, chills, chest pain, shortness of breath, nausea, vomiting, dizziness, headache, vision changes, lethargy In case of emergency call 911 You were treated here today with ceftriaxone, a medication that treats gonorrhea. I have sent to your pharmacy Metronidazole that covers trichomonas, and Doxycycline which covers for chlamydia. Please be reevaluated by a healthcare provider after completing your antibiotics. Do not stop them early, do not skip any doses. Until you are reevaluated by a health care provider please practice safe sex as disucussed. Please also have a conversation with your sexual partners.? I also advise you to obtain full panel STD testing to test for other STDs including HIV, Hepatitis B & C and syphilis with your PCP or a local clinic. Prescriptions: New doxycycline hyclate 100 mg capsule 100 mg PO BID 7 Days Qty: 14 0RF cefuroxime axetil 250 mg tablet 250 mg PO BID 7 Days Qty: 14 0RF metronidazole 500 mg tablet 500 mg PO BID 7 Days Qty: 14 0RF No Action acetaminophen [Tylenol Extra Strength] 500 mg tablet 500 mg PO Q6H PRN (Reason: pain or fever) Qty: 20 0RF ibuprofen 400 mg tablet 400 mg PO Q6H 7 Days Qty: 28 0RF dicyclomine 20 mg tablet 20 mg PO QID PRN (Reason: abdominal pain) Qty: 20 0RF ondansetron 4 mg tablet,disintegrating 4 mg PO Q6-8H PRN (Reason: nausea and vomiting) Qty: 7 0RF cyclobenzaprine 10 mg tablet 10 mg PO TID PRN (Reason: muscle spasm) Qty: 14 0RF diclofenac sodium [Voltaren Arthritis Pain] 1 % gel 2 g topical QID Qty: 100 0RF Rx Instructions: apply to single elbow, wrist or hand; for hand includes palm/fingers/back of hand amoxicillin-pot clavulanate [Augmentin] 875-125 mg tablet 1 tab PO Q12H 5 Days Qty: 10 0RF ibuprofen 600 mg tablet 600 mg PO Q6H PRN (Reason: pain) Qty: 30 0RF cefuroxime axetil 250 mg tablet 250 mg PO Q12H Qty: 14 0RF ondansetron 4 mg tablet,disintegrating 4 mg PO Q6-8H PRN (Reason: nausea and vomiting) Qty: 10 0RF loperamide [Imodium A-D] 2 mg tablet 2 mg PO Q6H PRN (Reason: loose stool) Qty: 14 0RF nitrofurantoin monohyd/m-cryst [Macrobid] 100 mg capsule 100 mg PO Q12H 5 Days Qty: 10 0RF Rx Instructions: must administer with a meal/food phenazopyridine [Pyridium] 200 mg tablet 200 mg PO TID PRN (Reason: Burning with urination) Qty: 6 0RF ibuprofen 400 mg tablet 400 mg PO Q6H PRN (Reason: pain) Qty: 20 0RF cephalexin 500 mg capsule 500 mg PO Q8H 7 Days Qty: 21 0RF cefuroxime axetil 500 mg tablet 500 mg PO BID 13 Days Qty: 26 0RF Referrals: Physician,Unknown J [Primary Care Provider] - 2 days Stand Alone Forms: Work/School Release Print Language: Kinyarwanda
[2023-09-26 08:48] LABS: Appearance Urine Cloudy; Color Urine Yellow; Glucose Urine UA Negative (Negative); Leukocyte Esterase Urine Large (3+) (Negative); Nitrite Urine Negative (Negative); Specific Gravity - Urine 1.015 (1.005-1.025); UMIC TRIGGER UACC YES; Urine Blood Moderate (2+) (Negative); Urine Ketones Negative (Negative); Urine Protein 30 (1+) mg/dL (Neg-Trace)
[2023-09-26 08:50] LABS: UPreg QC Valid YES; Urine Pregnancy NEGATIVE (NEGATIVE)
[2023-09-26] MEDS: metroNIDAZOLE 500 MG TABLET PO (08:50)
[2023-09-26] MEDS: cefTRIAXone sodium 500 MG VIAL IM (08:50)
[2023-09-26] MEDS: Doxycycline Monohydrate 100 MG CAPSULE PO (08:50)
[2023-09-26 08:53] LABS: Bacteria Urine 1+ (None Seen); Hyaline Casts Urine 0-2 /LPF (0-2); UACC Culture Trigger YES; WBC Urine >50 /HPF (0-5)
[2023-09-26 09:05] VITALS: BP 98/59; PULSE 69; RESP 18; TEMP 36.4; O2SAT 100
[2023-09-26 11:18] LABS: CT PCR NOT DETECTED (Not Detect.); NG PCR NOT DETECTED (Not Detect.)
== END 2023-09-26 09:06 | disposition home or self-care (01) ==
PROVIDERS: Physician Assistant; Emergency Provider Emergency Medicine
DX: N39.0 Urinary tract infection, site not specified (principal); R30.0 Dysuria; R35.0 Frequency of micturition; Z20.2 Contact with and (suspected) exposure to infections with a predominantly sexual mode of transmission; Z79.899 Other long term (current) drug therapy
CPT/HCPCS: 81001; 81025; 87086; 87491; 87591; 96372; 99282; 99284; J0696

== ENCOUNTER 2024-02-17 11:54 | Emergency (ER) | payer OTHER, SELFPAY ==
[2024-02-17 12:05] VITALS: BP 98/55; PULSE 76; RESP 16; TEMP 37; O2SAT 100; BMI 22.9
--- NOTE | 2024-02-17 12:05 | ED.GENADULT ---
HPI - General Adult General Chief complaint: Urogenital-Female Stated complaint: ? UTI Time Seen by Provider: 02/17/24 15:11 Source: patient and RN notes reviewed Mode of arrival: ambulatory Limitations: no limitations History of Present Illness ED Provider: Jing Hester PA-C HPI narrative: This is a 18-year-old female who presents emergency department with complaints of vaginal discharge the last 2 days. Patient states that she has had a yellow/green thick vaginal discharge over the last 2 days. She states that she does have slight vaginal itchiness. She also reports light irritation with urination however states that this is not a burning sensation. Denies any urinary frequency, urgency. Denies any abdominal pain. No nausea. No fevers or chills. She states that she has a history of chlamydia which was several years ago. She is sexually active with 1 partner, no new partners. She has never had a pelvic exam performed. She does not have an OBGYN. She has never been . No other complaints or concerns at this time. MD complaint: Vaginal discharge Onset (ago): day(s) Severity: moderate Quality: aching Pain Consistency: constant Relieving factors: none Exacerbating factors: none Associated symptoms: denies other symptoms Treatments prior to arrival: none Related Data Previous Rx's ?Medication ?Instructions ?Recorded acetaminophen 500 mg tablet 500 mg PO Q6H PRN pain or fever 10/17/20 (Tylenol Extra Strength) #20 tabs ibuprofen 400 mg tablet 400 mg PO Q6H 7 days #28 tabs 10/17/20 amoxicillin 875 mg-potassium 1 tab PO Q12H 5 days #10 tabs 03/15/21 clavulanate 125 mg tablet (Augmentin) dicyclomine 20 mg tablet 20 mg PO QID PRN abdominal pain 06/02/21 #20 tabs ondansetron 4 mg disintegrating 4 mg PO Q6-8H PRN nausea and 06/02/21 tablet vomiting #7 tabs ibuprofen 600 mg tablet 600 mg PO Q6H PRN pain #30 tabs 10/09/21 cyclobenzaprine 10 mg tablet 10 mg PO TID PRN muscle spasm #14 10/31/21 tabs diclofenac sodium 1 % topical gel 2 g topical QID #100 grams 10/31/21 (Voltaren Arthritis Pain) cefuroxime axetil 250 mg tablet 250 mg PO Q12H #14 tabs 12/20/21 loperamide 2 mg tablet (Imodium 2 mg PO Q6H PRN loose stool #14 05/05/22 A-D) tabs ondansetron 4 mg disintegrating 4 mg PO Q6-8H PRN nausea and 05/05/22 tablet vomiting #10 tabs nitrofurantoin 100 mg PO Q12H 5 days #10 caps 10/22/22 monohydrate/macrocrystals 100 mg capsule (Macrobid) phenazopyridine 200 mg tablet 200 mg PO TID PRN Burning with 10/22/22 (Pyridium) urination 6 doses #6 tabs cephalexin 500 mg capsule 500 mg PO Q8H 7 days #21 caps 01/05/23 ibuprofen 400 mg tablet 400 mg PO Q6H PRN pain #20 tabs 01/05/23 cefuroxime axetil 500 mg tablet 500 mg PO BID 13 days #26 tabs 08/15/23 cefuroxime axetil 250 mg tablet 250 mg PO BID 7 days #14 tabs 09/26/23 doxycycline hyclate 100 mg capsule 100 mg PO BID 7 days #14 caps 09/26/23 metronidazole 500 mg tablet 500 mg PO BID 7 days #14 tabs 09/26/23 doxycycline hyclate 100 mg tablet 100 mg PO BID 7 days #14 tabs 02/17/24 fluconazole 150 mg tablet 150 mg PO Q3D 2 doses #2 tabs 02/17/24 Allergies Allergy/AdvReac Type Severity Reaction Status Date / Time No Known Allergies Allergy Verified 02/17/24 12:06 Review of Systems Review of Systems: Yes all other systems are reviewed and are negative Constitutional: Constitutional: Reports as per [facility] Past Medical History Medical History Headache Social History Social History Alcohol intake: current Alcohol intake frequency: holidays/special occasions only Patient Tobacco Use Status: Never used Tobacco Substance Use Type: Marijuana Advance Directives: No Advance Directives Information Provided: No Physical Exam ED Vital Signs: Vital Signs - 24 hr 02/17/24 12:05 02/17/24 15:15 12/26/24 18:03 Temperature 98.6 F 98.2 F 98.2 F Pulse Rate 76 78 78 Respiratory Rate 16 17 17 Blood Pressure 98/55 L 98/63 98/63 Pulse Oximetry 100 99 99 Oxygen Delivery Method Room Air Room Air Room Air BMI result Body Mass Index 22.9 Const General: cooperative, comfortable and no acute distress Orientation/consciousness: patient oriented x3 Limitations: no limitations HENMT Head: Yes normal to inspection, Yes normocephalic and Yes atraumatic Ears: hearing grossly normal bilaterally General nose exam: Normal external nose present Face and sinus: Yes normal facial exam Mouth: Normal oral and palatal mucosa present, oropharynx normal and moist mucous membranes Throat: Yes posterior oropharynx normal Eyes General: appearance normal, both eyes and all related structures Eyelids: Yes eyelids normal Conjunctivae: conjunctivae normal Sclerae: sclerae normal Pupils: Equal, round and reactive pupils present EOM: EOMs intact bilaterally Neck Neck: Yes normal visual inspection, Yes full ROM and Yes no lymphadenopathy Lymphatic: no lymphadenopathy noted Chest Chest palpation & inspection: normal inspection of the chest Resp Effort & Inspection: normal respiratory effort and able to speak in complete sentences Auscultation: clear to auscultation bilaterally, no crackles, no rales, no rhonchi and no wheezes Cardio Rate: regular rate Rhythm: regular rhythm Heart sounds: S1 normal heart sound present and S2 normal heart sound present GI Other: Abdomen is soft, nontender, nondistended Inspection: Yes normal to inspection Other: Patient does have white, thick sticky vaginal discharge noted. No cervical motion tenderness. Pelvic examination was performed with SHAWNA Hodges present at all times. General: Yes Bimanual renal exam normal bilaterally External Female Exam: normal external appearance and normal appearance of the urethra Speculum Exam - Vagina: normal appearance of the vagina and normal palpation Speculum Exam - Cervix: normal appearance of the cervix, normal palpation and Cervical os closed Bimanual exam- vagina & uterus: normal palpation and normal palpation Bimanual Exam- Adnexa, other: normal adnexae Skin General skin exam: no rashes or lesions noted Trauma: no lacerations or abrasions Wounds: no wounds Neuro General: patient oriented x3 and moves all extremities Cranial nerves: Yes Equal, round and reactive pupils present Extrem General: Yes normal to inspection Right upper extremity: normal to inspection Left upper extremity: normal to inspection Right lower extremity: normal to inspection Left lower extremity: normal to inspection Course Course Course Narrative: RME, this is a rapid medical exam performed by Vinicius Muir please refer to primary provider for complete H&P- 18-year-old female presents for evaluation of abnormal vaginal discharge for last 2 days. She endorses new sexual partners. Plan for urinalysis, testing. Reevaluation(s) Reevaluation #1: pelvic examination performed, consistent with yeast. Will tx accordingly. Discussed also prophylactic tx with patient for gc/chlamydia, she would like tx at this time. Discussed return precautions. Pt stable for d/c Medications Administered Discontinued Medications Generic Name Dose Route Start Last Admin Trade Name Freq PRN Reason Stop Dose Admin Ceftriaxone Sodium 500 mg/ 0 mg 02/17/24 17:26 02/17/24 18:01 Lidocaine HCl 1 ml IM 02/17/24 17:27 1 kit ONCE ONE Administration Doxycycline Monohydrate 100 mg 02/17/24 17:26 02/17/24 18:01 Doxycycline Monohydrate 100 Mg Capsule PO 02/17/24 17:27 100 mg ONCE ONE Administration Medical Decision Making Medical Decision Making [facility] Narrative: This is a 18-year-old female who presents emergency department complaints of vaginal discharge for the last 2 days. On arrival, signs within normal limits. She is speaking in full sentences under no acute distress. Patient is sexually active, concern for change in vaginal discharge. Differential diagnoses include STI, bacterial vaginosis, vaginitis, UTI, Differential Diagnosis Differential Diagnoses: The differential diagnosis associated with the presentation includes See above Lab Data [facility] Lab Attestation statement: I reviewed the patient's lab results. Labs: Lab Results 02/17/24 02/17/24 Range/Units 15:37 17:05 Urine Color Yellow Urine Appearance Cloudy Urine pH 6.5 (5.0-9.0) Ur Specific [place] 1.010 (1.005-1.025) Urine Protein Negative (Neg-Trace) mg/dL Urine Glucose (UA) Negative (Negative) mg/dL Urine Ketones Negative (Negative) mg/dL Urine Blood Trace H (Negative) Urine Nitrite Negative (Negative) Ur Leukocyte Esterase Large (3+) H (Negative) Urine RBC 0-2 (0-2) /HPF Urine WBC 21-50 H (0-5) /HPF Ur Squamous Epith Cells 11-20 (0-2) /HPF Urine Bacteria 3+ (None Seen) Hyaline Casts 0-2 (0-2) /LPF Urine Yeast Present Urine Test NEGATIVE (NEGATIVE) Chlam trachomat DNA PCR NOT DETECTED (Not Detect.) N.gonorrhoeae DNA (PCR) NOT DETECTED (Not Detect.) T. vaginalis (PCR) NOT DETECTED (Not Detect) Bact vaginosis (PCR) NEGATIVE (Negative) C. krusei/glabrata (PCR) NOT DETECTED (Not Detect) Shelley group (PCR) DETECTED A (Not Detect) Radiology Impression Discussion of test interpretation with radiology: I have reviewed the radiologist's reading. External Record Review External record reviewed: Inpatient record, Office record, Outpatient record, Prior outpatient labs, Prior outpatient radiology, Primary care record and Outside ED record Discharge Plan Discharge Clinical Impression: Vaginitis, Possible exposure to STI Patient Disposition: Home, Self-Care Instructions: Vaginal Discharge (ED) Additional Instructions: You were seen in the emergency department due to abnormal vaginal discharge. You have exam findings concerning for yeast infection. You also wanted to be treated prophylactically for gonorrhea and chlamydia. Please take prescribed doxycycline as directed, finish the entire course. I am also treating you for yeast infection, please take as prescribed. Finish both of these medications as directed. We will call you if any of your swabs are positive. If any new or worsening symptoms occur including but not limited to worsening pain, itchiness, discharge, fevers, chills, chest pain, shortness of breath, please seek emergent care. Prescriptions: New fluconazole 150 mg tablet 150 mg PO Q3D Qty: 2 0RF Rx Instructions: may repeat second dose 72 hrs after first dose if symptoms persist doxycycline hyclate 100 mg tablet 100 mg PO BID 7 Days Qty: 14 0RF No Action acetaminophen [Tylenol Extra Strength] 500 mg tablet 500 mg PO Q6H PRN (Reason: pain or fever) Qty: 20 0RF ibuprofen 400 mg tablet 400 mg PO Q6H 7 Days Qty: 28 0RF dicyclomine 20 mg tablet 20 mg PO QID PRN (Reason: abdominal pain) Qty: 20 0RF ondansetron 4 mg tablet,disintegrating 4 mg PO Q6-8H PRN (Reason: nausea and vomiting) Qty: 7 0RF cyclobenzaprine 10 mg tablet 10 mg PO TID PRN (Reason: muscle spasm) Qty: 14 0RF diclofenac sodium [Voltaren Arthritis Pain] 1 % gel 2 g topical QID Qty: 100 0RF Rx Instructions: apply to single elbow, wrist or hand; for hand includes palm/fingers/back of hand amoxicillin-pot clavulanate [Augmentin] 875-125 mg tablet 1 tab PO Q12H 5 Days Qty: 10 0RF ibuprofen 600 mg tablet 600 mg PO Q6H PRN (Reason: pain) Qty: 30 0RF cefuroxime axetil 250 mg tablet 250 mg PO Q12H Qty: 14 0RF ondansetron 4 mg tablet,disintegrating 4 mg PO Q6-8H PRN (Reason: nausea and vomiting) Qty: 10 0RF loperamide [Imodium A-D] 2 mg tablet 2 mg PO Q6H PRN (Reason: loose stool) Qty: 14 0RF doxycycline hyclate 100 mg capsule 100 mg PO BID 7 Days Qty: 14 0RF cefuroxime axetil 250 mg tablet 250 mg PO BID 7 Days Qty: 14 0RF metronidazole 500 mg tablet 500 mg PO BID 7 Days Qty: 14 0RF nitrofurantoin monohyd/m-cryst [Macrobid] 100 mg capsule 100 mg PO Q12H 5 Days Qty: 10 0RF Rx Instructions: must administer with a meal/food phenazopyridine [Pyridium] 200 mg tablet 200 mg PO TID PRN (Reason: Burning with urination) Qty: 6 0RF ibuprofen 400 mg tablet 400 mg PO Q6H PRN (Reason: pain) Qty: 20 0RF cephalexin 500 mg capsule 500 mg PO Q8H 7 Days Qty: 21 0RF cefuroxime axetil 500 mg tablet 500 mg PO BID 13 Days Qty: 26 0RF Interventions: ED Discharge Assessment Last Done: 02/17/24 18:03 Discharge Date/Time: 02/17/24 18:03 Print Language: Turkmen
[2024-02-17 15:15] VITALS: BP 98/63; PULSE 78; RESP 17; TEMP 36.8; O2SAT 99
[2024-02-17 15:50] LABS: Appearance Urine Cloudy; Color Urine Yellow; Glucose Urine UA Negative (Negative); Leukocyte Esterase Urine Large (3+) (Negative); Nitrite Urine Negative (Negative); PH 6.5 (5.0-9.0); UMIC TRIGGER UACC YES; Urine Blood Trace (Negative); Urine Ketones Negative (Negative); Urine Protein Negative (Neg-Trace)
[2024-02-17 15:52] LABS: UPreg QC Valid YES; Urine Pregnancy NEGATIVE (NEGATIVE)
[2024-02-17 16:10] LABS: Bacteria Urine 3+ (None Seen); Hyaline Casts Urine 0-2 /LPF (0-2); RBC Urine 0-2 /HPF (0-2); UACC Culture Trigger YES; WBC Urine 21-50 /HPF (0-5)
[2024-02-17] MEDS: Doxycycline Monohydrate 100 MG CAPSULE PO (18:01)
[2024-02-17] MEDS: cefTRIAXone sodium 500 MG, Lidocaine HCl 1 % MPF 1 ML IM (18:01)
[2024-02-17 18:03] VITALS: BP 98/63; PULSE 78; RESP 17; TEMP 36.8; O2SAT 99
[2024-02-17 18:55] LABS: CT PCR NOT DETECTED (Not Detect.); NG PCR NOT DETECTED (Not Detect.)
[2024-02-18 10:06] LABS: Bacterial Vaginosis PCR NEGATIVE (Negative); Candida Group PCR DETECTED (Not Detect); Candida glab krusei PCR NOT DETECTED (Not Detect); Trichomonas vaginalis PCR NOT DETECTED (Not Detect)
== END 2024-02-17 18:03 | disposition home or self-care (01) ==
PROVIDERS: Physician Assistant; Physician Assistant Medical; Emergency Provider Emergency Medicine
DX: B37.31 Acute candidiasis of vulva and vagina (principal); Z20.2 Contact with and (suspected) exposure to infections with a predominantly sexual mode of transmission
CPT/HCPCS: 0352U; 81001; 81025; 87086; 87147; 87491; 87591; 96372; 99283; 99284; J0696; J2003

== ENCOUNTER 2024-05-21 12:26 | Emergency (ER) | payer OTHER, SELFPAY ==
--- NOTE | ~2024-05-21 | XR_ITS ---
CLINICAL HISTORY: chest pain 2 view chest x-ray Comparison: None Findings: The lungs are clear. Heart size is normal. No acute fracture. IMPRESSION: 1. No acute findings. This document has been electronically signed by: Jessica Valencia MD on 05/21/2024 13:13:30
--- NOTE | 2024-05-21 12:28 | ECG_ITS ---
Test Reason : CP Blood Pressure : */* mmHG Vent. Rate : 78 BPM Atrial Rate : 78 BPM P-R Int : 100 ms QRS Dur : 72 ms QT Int : 368 ms P-R-T Axes : 102 84 66 degrees QTcB Int : 419 ms Sinus rhythm with short MA Otherwise normal ECG No previous ECGs available Referred By: Debra Lange Electronically Signed By: MARK ALCALA
[2024-05-21 12:33] VITALS: BP 108/71; PULSE 80; RESP 18; TEMP 36.5; O2SAT 100; BMI 21.8
--- NOTE | 2024-05-21 12:37 | ED_ITS ---
HPI - Chest Pain General Chief Complaint: Chest Pain Stated Complaint: Chest pain side pain Time Seen by Provider: 05/21/24 12:45 Source: patient Mode of arrival: ambulatory Limitations: no limitations History of Present Illness ED Provider: Macey Kruse PA-C HPI narrative: Patient is a 18 year old assigned female at with no reported medical history presenting to the emergency department today with left sided rib cage pain. Patient states that she has been having left sided rib pain that is worse with deep breathing. Patient denies any dizziness, lightheadedness, abdominal pain, nausea, vomiting, fever, chills, blurry vision, double vision, loss of vision, difficulty breathing, shortness of breath, back pain, night sweats, pain with urination, increased urinary frequency, increased urinary urgency, blood in her urine or stool, syncope or a near syncopal episode, recent trauma or falls, bowel incontinence, bladder incontinence, or any other complaints at this time. Quality: sharp Exacerbating factors: inspiration Related Data Previous Rx's ?Medication ?Instructions ?Recorded acetaminophen 500 mg tablet 500 mg PO Q6H PRN pain or fever 10/17/20 (Tylenol Extra Strength) #20 tabs ibuprofen 400 mg tablet 400 mg PO Q6H 7 days #28 tabs 10/17/20 amoxicillin 875 mg-potassium 1 tab PO Q12H 5 days #10 tabs 03/15/21 clavulanate 125 mg tablet (Augmentin) dicyclomine 20 mg tablet 20 mg PO QID PRN abdominal pain 06/02/21 #20 tabs ondansetron 4 mg disintegrating 4 mg PO Q6-8H PRN nausea and 06/02/21 tablet vomiting #7 tabs ibuprofen 600 mg tablet 600 mg PO Q6H PRN pain #30 tabs 10/09/21 cyclobenzaprine 10 mg tablet 10 mg PO TID PRN muscle spasm #14 10/31/21 tabs diclofenac sodium 1 % topical gel 2 g topical QID #100 grams 10/31/21 (Voltaren Arthritis Pain) cefuroxime axetil 250 mg tablet 250 mg PO Q12H #14 tabs 12/20/21 loperamide 2 mg tablet (Imodium 2 mg PO Q6H PRN loose stool #14 05/05/22 A-D) tabs ondansetron 4 mg disintegrating 4 mg PO Q6-8H PRN nausea and 05/05/22 tablet vomiting #10 tabs nitrofurantoin 100 mg PO Q12H 5 days #10 caps 10/22/22 monohydrate/macrocrystals 100 mg capsule (Macrobid) phenazopyridine 200 mg tablet 200 mg PO TID PRN Burning with 10/22/22 (Pyridium) urination 6 doses #6 tabs cephalexin 500 mg capsule 500 mg PO Q8H 7 days #21 caps 01/05/23 ibuprofen 400 mg tablet 400 mg PO Q6H PRN pain #20 tabs 01/05/23 cefuroxime axetil 500 mg tablet 500 mg PO BID 13 days #26 tabs 08/15/23 cefuroxime axetil 250 mg tablet 250 mg PO BID 7 days #14 tabs 09/26/23 doxycycline hyclate 100 mg capsule 100 mg PO BID 7 days #14 caps 09/26/23 metronidazole 500 mg tablet 500 mg PO BID 7 days #14 tabs 09/26/23 doxycycline hyclate 100 mg tablet 100 mg PO BID 7 days #14 tabs 02/17/24 fluconazole 150 mg tablet 150 mg PO Q3D 2 doses #2 tabs 02/17/24 Allergies Allergy/AdvReac Type Severity Reaction Status Date / Time No Known Allergies Allergy Verified 05/21/24 12:37 Review of Systems 2 Constitutional: Constitutional: Reports no additional constitutional complaints, Denies chills, Denies fever(s) and Denies night sweats Eyes: Eyes: Reports no additional eye complaints, Denies blurry vision, Denies change in vision, Denies diplopia, Denies eye discharge, Denies loss of vision and Denies eye pain ENT: Denies dizziness Cardiovascular: Cardiovascular: Reports no additional cardiovascular complaints, Reports chest pain (left sided rib pain), Denies lightheadedness, Denies Loss of Consciousness and Denies dyspnea Respiratory: Respiratory: Reports no additional respiratory complaints and Denies dyspnea Gastrointestinal: Gastrointestinal: Reports no additional gastrointestinal complaints, Denies abdominal pain, Denies melena, Denies hematochezia, Denies change in bowel habits and Denies change in stool character Genitourinary: Genitourinary: Denies hematuria, Denies urinary frequency, Denies dysuria, Denies urinary incontinence, Denies urinary hesitancy and Denies urinary urgency Musculoskeletal: Musculoskeletal: Reports no additional musculoskeletal complaints, Denies numbness and Denies tingling Neurologic: Denies dizziness, Denies loss of vision, Denies numbness and Denies tingling Psychiatric: Psychiatric: Reports no additional psychiatric complaints Endocrine: Endocrine: Reports no additional endocrine complaints Hematologic/Lymphatic: Hematologic/Lymphatic: Reports no additional hematologic/lymphatic complaints Allergic/Immunologic: Allergic/Immunologic: Reports no additional allergic/immunologic complaints [facility] Past Medical History Attestation statement: The following information was validated with the patient. Source: old records reviewed and nursing notes reviewed Medical History Headache Social History Social History Alcohol intake: current Alcohol intake frequency: holidays/special occasions only Patient Tobacco Use Status: Never used Tobacco Smoked in Last 30 Days: No Substance Use Type: Marijuana Advance Directives: No Advance Directives Information Provided: Yes Do you have a plan to hurt others: No Plan Physical Exam 2 Vital Signs: Vital Signs: Last Vital Signs Temp 97.7 F 05/21/24 12:33 Pulse 80 05/21/24 12:33 Resp 18 05/21/24 12:33 BP 108/71 05/21/24 12:33 Pulse Ox 100 05/21/24 12:33 O2 Del Method Room Air 05/21/24 12:33 BMI result Body Mass Index 21.8 Const: General: cooperative, no acute distress, alert and awake Nutritional Appearance: well nourished Orientation/consciousness: patient oriented x3 Limitations: no limitations HEENT: Head: Yes normal to inspection and Yes atraumatic Ears: hearing grossly normal bilaterally and external ears normal General nose exam: Normal external nose present, no nasal discharge noted and no epistaxis Face and sinus: Yes normal facial exam, No abrasion and No laceration Mouth: Normal oral and palatal mucosa present, no drooling and no muffled voice Eyes: General: appearance normal, both eyes and all related structures P eriorbital: periorbital findings normal Eyelids: Yes eyelids normal C onjunctivae: conjunctivae normal Pupils: Equal, round and reactive pupils present EOM: EOMs intact bilaterally Neck: Neck: Yes normal visual inspection, Yes full ROM and Yes no lymphadenopathy Chest: Chest palpation & inspection: normal inspection of the chest Resp: Effort & Inspection: normal respiratory effort and able to speak in complete sentences GI: Inspection: Yes normal to inspection Neuro: General: patient oriented x3, moves all extremities and CN's II-XI intact bilaterally Cranial nerves: Yes Equal, round and reactive pupils present Cognition (Neuro): normal cognition Extrem: General: Yes normal to inspection, Yes full ROM and Yes capillary refill normal Psych: Appearance: grossly normal Mental Status: mental status grossly normal Affect: normal affect Attitude: cooperative Thought process: N ormal thought process present Thought content: Normal thought content present Insight: Good insight present (Psych) Course Course Course Narrative: This is an RME performed by Yolie Lange, CHEMICAL PROJECT ENGINEER: Additional HPI, ROS, PE not included below will be deferred to primary provider. patient is a 18-year-old female who presents emergency department for evaluation, states that she began experiencing left sided chest pain just beneath the breast yesterday that has progressively worsened until today, increases with deep breathing /inspiration. Denies URI symptoms. Denies known sick contacts. Denies use of OCP, history of VTE/malignancy Medications Administered Discontinued Medications Generic Name Dose Route Start Last Admin Trade Name Freq PRN Reason Stop Dose Admin Ketorolac Tromethamine 15 mg 05/21/24 12:53 05/21/24 13:06 Ketorolac Tromethamine 15 Mg/Ml Vial IM 05/21/24 12:54 15 mg ONCE ONE Administration Lorazepam 1 mg 05/21/24 12:53 05/21/24 13:06 Lorazepam 1 Mg Tablet PO 05/21/24 12:54 1 mg ONCE ONE Administration Medical Decision Making Medical Decision Making [facility] Narrative: Patient is a 18 year old assigned female at with no reported medical history presenting to the emergency department today with chest and left sided rib pain. Patient's physical exam was unremarkable. Patient's blood work was unremarkable. Patient's EKG was unremarkable. Patient's chest x-ray showed no acute process. I explained my physical exam findings as well as all test results to the patient. I answered all questions asked by the patient. Patient received Toradol and Ativan which, upon re-evaluation, she stated it helped her symptoms significantly. I stressed the importance of the patient taking her medication as directed (either prescribed or as the over the counter packaging recommends). I stressed the importance of the patient following up with her primary care provider. I stressed the importance of the patient returning to the emergency department immediately if her symptoms were to worsen or if she were to develop any dizziness, shortness of breath, difficulty breathing, chest pain, blurry vision, loss of vision, nausea, vomiting, abdominal pain, fever, chills, back pain, or any other complaints. Patient verbalized agreement and understanding with this treatment plan and discharge. Differential Diagnosis Differential Diagnoses: The differential diagnosis associated with the presentation includes Costochondritis Pleurisy Admission/Observation Consideration of admission/observation: Escalation of care including admission/observation considered Patient would have been admitted to the hospital had her work up had any findings where hospital admission was appropriate and her clinical presentation warranted hospital admission. Lab Data [facility] Lab Attestation statement: I reviewed the patient's lab results. My interpretation of these results are in the [facility] Rationale portion of this note. 05/21/24 13:07 05/21/24 13:07 Labs: Lab Results 05/21/24 Range/Units 13:07 WBC 11.1 H (4.8-10.8) X10*3/uL RBC 4.72 (4.20-5.50) X10*6/uL Hgb 14.5 (12.0-16.0) g/dl Hct 40.8 (37.0-47.0) % MCV 86.4 (80.0-98.0) fL MCH 30.7 (27.0-33.0) pg MCHC 35.5 H (31.0-35.0) g/dl RDW 12.8 (11.0-16.0) % Plt Count 280 (160-400) X10*3/uL MPV 11.3 (9.4-12.3) fL Immature Gran % (Auto) 0.6 H (0.0-0.4) % Neut % (Auto) 49.6 (45-73) % Lymph % (Auto) 40.9 H (20-40) % [place] % (Auto) 7.5 (2-11) % Eos % (Auto) 0.9 (0-4) % Baso % (Auto) 0.5 (0-2) % Lymph # (Auto) 4.5 (1.2-4.9) X10*3/uL [place] # (Auto) 0.8 (0.1-1.2) X10*3/uL Eos # (Auto) 0.1 (0.0-0.4) X10*3/uL Baso # (Auto) 0.1 (0.0-0.2) X10*3/uL Abs Immat Gran (auto) 0.07 H (0.00-0.03) X10*3/uL Absolute Neuts (auto) 5.5 (2.0-8.3) x10*3/uL Absolute Nucleated RBC 0.000 (0.0-0.012) X10*3/uL Nucleated RBC % (auto) 0.0 (0.0-0.2) /100WBC Sodium 138 (135-145) mmol/L Potassium 3.4 (3.3-5.1) mmol/L Chloride 108 (96-108) mmol/L Carbon Dioxide 17 L (22-29) mmol/L Anion Gap 16 (12-20) BUN 14 (9-16) mg/dL Creatinine 0.80 (0.5-1.4) mg/dL Estim Creat Clear Calc 96.8 Estimated GFR > 60 Random Glucose 76 (60-115) mg/dL Calcium 10.0 (8.4-10.2) mg/dL Total Bilirubin 0.8 (0.0-1.0) mg/dL AST 40 H (5-31) U/L ALT 16 (0-31) U/L Alkaline Phosphatase 69 (39-117) U/L Troponin I High Sens < 2.7 (<3.5-17.0) ng/L Total Protein 8.3 H (6.5-8.0) g/dL Albumin 4.6 (3.5-5.0) g/dL Influenza Type A (PCR) NEGATIVE (Negative) Influenza Type B (PCR) NEGATIVE (Negative) RSV RNA Qual (PCR) NEGATIVE (Negative) SARS-CoV-2 RNA (RT-PCR) NEGATIVE (Negative) Independent Interpretation I performed an independent interpretation of an: EKG and Plain X-Ray Interpretation: My interpretation is in agreement with the radiologist's impression of this imaging study. L CLINICAL HISTORY: chest pain 2 view chest x-ray Comparison: None Findings: The lungs are clear. Heart size is normal. No acute fracture. IMPRESSION: 1. No acute findings. This document has been electronically signed by: Jessica Valencia MD on 05/21/2024 13:13:30 Dictated By: Jessica Valencia MD Signed By: Electronically signed by Jessica Valencia MD 05/21/24 1313 I independently interpreted this EKG and am in agreement with the below findings: Vent. Rate: 78 BPM Atrial Rate: 78 BPM P-R Int: 100 ms QRS Dur: 72 ms QT Int: 368 ms P-R-T Axes: 102 84 66 degrees QTcB Int: 419 ms Sinus rhythm with short WI No previous ECGs available DD/ 1231 Radiology Impression Discussion of test interpretation with radiology: I have reviewed the radiologist's reading. Discharge Plan Discharge Clinical Impression: Atypical chest pain, Acute costochondritis Patient Disposition: Home, Self-Care Instructions: Costochondritis (ED), Thoracic Pain (ED), Chest Wall Pain (ED) Additional Instructions: Your work up today was reassuring that there is no acute emergent process attributing to your symptoms. Follow up with your primary care provider. Return to the emergency department immediately if your symptoms worsen or if you develop any numbness, tingling, dizziness, shortness of breath, difficulty breathing, chest pain, blurry vision, loss of vision, nausea, vomiting, abdominal pain, fever, chills, back pain, or any other complaints. Please see the information below about our Patient Portal. If you are not yet enrolled in the [facility] Patient Portal, you will receive an enrollment email invitation following your visit to any [facility] care setting. You may also self-enroll in the Patient Portal by visiting our website: [email or web address] The following information is required to access the Patient Portal: - Your [facility] Medical Record Number - Your personal home email address (must match what is in your electronic medical record, Registration staff can assist with this) - Name - Date of Capabilities of the Patient Portal: - Message some providers - View upcoming appointments - Access your health summary, medical history, and visit history - View current conditions and allergies - View procedure and lab results - View your medications, including guidelines, side effects, and precautions - Complete pre-appointment questionnaires requested by your provider - Ready summary reports of your office visits and procedures To access the Patient Portal Mobile [employer], follow these directions: - Search [email or web address] in the [employer] Store or [employer] Store - Download the [employer] - Search for [facility] - Enter your login/password Prescriptions: No Action acetaminophen [Tylenol Extra Strength] 500 mg tablet 500 mg PO Q6H PRN (Reason: pain or fever) Qty: 20 0RF ibuprofen 400 mg tablet 400 mg PO Q6H 7 Days Qty: 28 0RF dicyclomine 20 mg tablet 20 mg PO QID PRN (Reason: abdominal pain) Qty: 20 0RF ondansetron 4 mg tablet,disintegrating 4 mg PO Q6-8H PRN (Reason: nausea and vomiting) Qty: 7 0RF cyclobenzaprine 10 mg tablet 10 mg PO TID PRN (Reason: muscle spasm) Qty: 14 0RF diclofenac sodium [Voltaren Arthritis Pain] 1 % gel 2 g topical QID Qty: 100 0RF Rx Instructions: apply to single elbow, wrist or hand; for hand includes palm/fingers/back of hand amoxicillin-pot clavulanate [Augmentin] 875-125 mg tablet 1 tab PO Q12H 5 Days Qty: 10 0RF ibuprofen 600 mg tablet 600 mg PO Q6H PRN (Reason: pain) Qty: 30 0RF cefuroxime axetil 250 mg tablet 250 mg PO Q12H Qty: 14 0RF ondansetron 4 mg tablet,disintegrating 4 mg PO Q6-8H PRN (Reason: nausea and vomiting) Qty: 10 0RF loperamide [Imodium A-D] 2 mg tablet 2 mg PO Q6H PRN (Reason: loose stool) Qty: 14 0RF doxycycline hyclate 100 mg capsule 100 mg PO BID 7 Days Qty: 14 0RF cefuroxime axetil 250 mg tablet 250 mg PO BID 7 Days Qty: 14 0RF metronidazole 500 mg tablet 500 mg PO BID 7 Days Qty: 14 0RF fluconazole 150 mg tablet 150 mg PO Q3D Qty: 2 0RF Rx Instructions: may repeat second dose 72 hrs after first dose if symptoms persist doxycycline hyclate 100 mg tablet 100 mg PO BID 7 Days Qty: 14 0RF nitrofurantoin monohyd/m-cryst [Macrobid] 100 mg capsule 100 mg PO Q12H 5 Days Qty: 10 0RF Rx Instructions: must administer with a meal/food phenazopyridine [Pyridium] 200 mg tablet 200 mg PO TID PRN (Reason: Burning with urination) Qty: 6 0RF ibuprofen 400 mg tablet 400 mg PO Q6H PRN (Reason: pain) Qty: 20 0RF cephalexin 500 mg capsule 500 mg PO Q8H 7 Days Qty: 21 0RF cefuroxime axetil 500 mg tablet 500 mg PO BID 13 Days Qty: 26 0RF Referrals: [facility] Family Medicine [Provider Group] (Call to establish and follow up with a primary care provider. If you already have a primary care provider, please follow up with them.) [facility] Primary Care, [facility] [Provider Group] (Call to establish and follow up with a primary care provider. If you already have a primary care provider, please follow up with them.) [facility] Primary [facility] [Provider Group] (Call to establish and follow up with a primary care provider. If you already have a primary care provider, please follow up with them.) [facility] Primary [facility] [Provider Group] (Call to establish and follow up with a primary care provider. If you already have a primary care provider, please follow up with them.) Stand Alone Forms: Work/School Release Print Language: Taiwanese
--- OUTSIDE RECORDS SUMMARY | 2024-05-21 12:53 | XMS_ITS | Clinical Summary ---
Author Organization [employer] [facility] ity Address [address] [place] [address] Care Team Providers Care Field Application Engineer Name Role Phone Unavailable Primary Care Provider Unavailabl e Social History Tobacco Use Types Packs/Day Years Used Date Smoking Tobacco: Never Assessed Comments Unknown Sex and Gender Information Value Date Recorded Sex Assigned at Not on file Legal Sex Female 8:18 PM EST Gender Identity Not on file Sexual Orientation Not on file Plan of Treatment Health Maintenance Due Date Last Done Comments Gonorrhea/Chlamydia Screening 2003 Varicella Vaccines (1 of 2 - 13+ 2-dose series) 10/15/2016 HPV Vaccines (1 - 3-dose series) 10/15/2018 Meningococcal B Vacine (1 of 2 - Standard) 2019 DTaP,Tdap,and Td Vaccines (1 - Tdap) 10/15/2022 Hepatitis B Vaccines (1 of 3 - 19+ 3-dose series) 10/15/2022 Annual Well Child Visit (3-2 1 years old) 03/18/2023 Depression Screening 03/18/2023 HIV Screening 03/18/2023 Hepatitis C Screening 03/18/2023 Social Influencers of Health Screening 03/18/2023 COVID-19 Vaccine ( - 2023-2 5 season) 2023 Influenza Vaccine (#1) 2023 HIB Vaccines Aged Out No longer eligi ble based on patient's age to complete this topic Hepatitis A Vaccines Aged Out No long er eligible based on patient's age to complete this topic IPV Vaccines Aged Out No longer eligi ble based on patient's age to complete this topic MMR Vaccines Aged Out No longer eligi ble based on patient's age to complete this topic Meningococcal ACWY Vaccine Aged Out N o longer eligible based on patient's age to complete this topic Pneumococcal Vaccine: Pediat rics (0 to 5 Years) and At-Risk Patients (6 to 64 Years) Aged Out No longer eligible b ased on patient's age to complete this topic RSV Immunization Patients Un roxana 20 months Aged Out No longer eligible b ased on patient's age to complete this topic
--- OUTSIDE RECORDS SUMMARY | 2024-05-21 12:53 | XMS_ITS | Clinical Summary ---
Author Organization [facility] Address [address] [place] [address] Care Team Providers Care Solar Energy Specialist Name Role Phone Unavailable Primary Care Provider Unavailabl e Source Comments PLEASE NOTE, if this patient is a minor, it may be UNLAWFUL to discuss sensitive information that is contained in these records (such as FAMILY PLANNING, MENTAL HEALTH or SUBSTANCE ABUSE) with the minor patient's parent or other person without the patient's specific authorization.[facility] Immunizations Immunization Administration Dates Next Due PFIZER COVID VACCINE, PURPLE CAP, 12+ 07/23/2020 ,07/02/2020 Social History Tobacco Use Types Packs/Day Years Used Date Smoking Tobacco: Never Assessed Social Connections Answer Date Recorded Social Connections and Isolation 0 07/02/2020 Financial Resource Strain Answer Date R ecorded Financial Resource Strain 0 2020 Stress Answer Date Recorded Stress 0 07/02/2020 Physical Activity Answer Date Recorded Physical Activity 0 07/02/2020 Food Insecurity Answer Date Recorded Food 0 07/02/2020 Transportation Needs Answer Date Record ed Transportation 0 07/02/2020 Housing Stability Answer Date Recorded Housing 0 07/02/2020 Safety and Environment Answer Date Woody rded Safety 0 07/02/2020 Utilities Answer Date Recorded Utilities 0 07/02/2020 Employment Answer Date Recorded Employment 0 07/02/2020 Comments Unknown Sex and Gender Information Value Date Recorded Sex Assigned at Not on file Legal Sex Female 10:43 AM PDT Gender Identity Not on file Sexual Orientation Not on file Plan of Treatment Health Maintenance Due Date Last Done Comments Hepatitis C Screening 2003 Tobacco Screening 2003 Imm-MMR (1 of 1 - Standard series) 10/15/2004 Chlamydia Screening 10/15/2016 Gonorrhea Screening 10/15/2016 Imm-Varicella (1 of 2 - 13+ 2-dose series) 10/15/2016 HIV Screening 10/15/2018 Imm-HPV (1 - 3-dose series) 10/15/2018 Relationship Safety Screening/Counseling 10/15/2018 Annual Preventive Care Visit 10/15/2021 Hypertension Screening (#1) 10/15/2021 Imm-DTaP/Tdap/Td (1 - Tdap) 10/15/2022 Imm-Hepatitis B (1 of 3 - 19 + 3-dose series) 10/15/2022 [id number] ( - 2023- season) 2023 07/23/2020, 07/02/2020 Imm-Influenza (#1) 2023 Alcohol and Drug Screen 02/23/2024 Depression Annual Screen 02/23/2024 Imm-Hepatitis A Aged Out No longer el igible based on patient's age to complete this topic Insurance [employer]
--- OUTSIDE RECORDS SUMMARY | 2024-05-21 12:53 | XMS_ITS | Encounter Summary ---
Author Organization [facility] Address [address] [place] [id number] Phone Care Team Providers Care House Mother Name Role Phone Provider, Deneen WILLIAM Primary Care Provider [phone] Encounter Details Date Type Department Care Team ([facility] Contact Info) Description 10/08/2016 Conversion Encounter [facility] - [address] [address] Social History Tobacco Use Types Packs/Day Years Used Date Smoking Tobacco: Never Comments:Never smoker Comments Unknown Sex and Gender Information Value Date Recorded Sex Assigned at Not on file Legal Sex Female 5:24 PM EDT Gender Identity Not on file Sexual Orientation Straight 01/06/2021 2: 37 PM EST documented as of this encounter Plan of Treatment Not on file documented as of this encounter Visit Diagnoses Not on filedocumented in this encounter Care Teams House Mother Relationship Specialty Start Date End Date Provider, MD [address] [place] [id number] PCP - General Pediatrics 03/23/22 05/17/24 documented as of this encounter
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
--- OUTSIDE RECORDS SUMMARY | 2024-05-21 12:53 | XMS_ITS | Encounter Summary ---
Author Organization [facility] Address [address] [place] [id number] Phone Care Team Providers Care Care Navigator Name Role Phone Provider, Deneen WILLIAM Primary Care Provider [phone] Encounter Details Date Type Department Care Team (Late st Contact Info) Description 08/27/2014 Documentation [facility] [place] [place] Family Medicine [address] [place] [address] Family Medicine, Physician [address] [place] [address] Social History Tobacco Use Types Packs/Day Years [...] on filedocumented in this encounter Care Teams Care Navigator Relationship Specialty Start Date End Date Provider, MD [address] [place] [id number] PCP - General Pediatrics 03/23/22 05/17/24 documented as of this encounter
[2024-05-21] MEDS: Ketorolac Tromethamine 15 MG/ML VIAL IM (13:06)
[2024-05-21] MEDS: LORazepam 1 MG TABLET PO (13:06)
[2024-05-21 13:20] LABS: MANUAL DIFF FLAG NO
[2024-05-21 13:22] LABS: Basophils Absolute Auto 0.1 X10*3/uL (0.0-0.2); Basophils Percent Auto 0.5 % (0-2); Eosinophils Absolute Auto 0.1 X10*3/uL (0.0-0.4); Eosinophils Percent Auto 0.9 % (0-4); Hematocrit 40.8 % (37.0-47.0); Hemoglobin 14.5 g/dl (12.0-16.0); Imm Gran Abs Auto 0.07 X10*3/uL (0.00-0.03); Imm Gran Pct Auto 0.6 % (0.0-0.4); Lymphocytes Absolute Auto 4.5 X10*3/uL (1.2-4.9); Lymphocytes Percent Auto 40.9 % (20-40); Mean Corpuscular HGB Conc 35.5 g/dl (31.0-35.0); Mean Corpuscular Hemoglobin 30.7 pg (27.0-33.0); Mean Corpuscular Volume 86.4 fL (80.0-98.0); Mean Platelet Volume 11.3 fL (9.4-12.3); Monocytes Absolute Auto 0.8 X10*3/uL (0.1-1.2); Monocytes Percent Auto 7.5 % (2-11); Neutrophils Absolute Auto 5.5 x10*3/uL (2.0-8.3); Neutrophils Percent Auto 49.6 % (45-73); Platelet Count 280 X10*3/uL (160-400); Red Blood Count 4.72 X10*6/uL (4.20-5.50); Red Cell Distribution Width 12.8 % (11.0-16.0); White Blood Count 11.1 X10*3/uL (4.8-10.8)
[2024-05-21 13:44] LABS: Alanine Aminotransferase 16 U/L (0-31); Albumin Level 4.6 g/dL (3.5-5.0); Anion Gap 16 (12-20); Aspartate Amino Transferase 40 U/L (5-31); Bilirubin Total 0.8 mg/dL (0.0-1.0); Blood Urea Nitrogen 14 mg/dL (9-16); Carbon Dioxide 17 mmol/L (22-29); Chloride 108 mmol/L (96-108); Creatinine Clr Calc Pharmacy 96.8; Estimated Glomerular Filt Rate > 60; Glucose Random 76 mg/dL (60-115); Potassium 3.4 mmol/L (3.3-5.1); Sodium 138 mmol/L (135-145); Total Protein 8.3 g/dL (6.5-8.0)
[2024-05-21 13:46] LABS: Troponin-I High Sensitivity < 2.7 ng/L (<3.5-17.0)
[2024-05-21 13:49] LABS: Alkaline Phosphatase 69 U/L (39-117)
[2024-05-21 14:00] LABS: Influenza A PCR NEGATIVE (Negative); Influenza B PCR NEGATIVE (Negative); Resp Syncy Virus RNA Qual PCR NEGATIVE (Negative); SARS COV2 PCR INHOUSE NEGATIVE (Negative)
[2024-05-21 14:35] VITALS: BP 98/60; PULSE 88; RESP 16; TEMP 36.9; O2SAT 100
== END 2024-05-21 14:37 | disposition home or self-care (01) ==
PROVIDERS: Physician Assistant Medical; Emergency Provider Internal Medicine
DX: M94.0 Chondrocostal junction syndrome [Tietze] (principal); R07.9 Chest pain, unspecified; R07.81 Pleurodynia; Z03.818 Encounter for observation for suspected exposure to other biological agents ruled out
CPT/HCPCS: 0241U; 36415; 71046; 80053; 84484; 85025; 93005; 96372; 99284; J1885

== ENCOUNTER → 2024-05-21 12:28 | Outpatient (BNV) | payer OTHER, SELFPAY | PROVIDERS: Emergency Provider Internal Medicine; Visit Provider Internal Medicine | DX: R07.9 Chest pain, unspecified (principal) | CPT/HCPCS: 93010 ==

== ENCOUNTER → 2024-05-21 12:46 | Outpatient (BNV) | payer OTHER, SELFPAY | PROVIDERS: Emergency Provider Internal Medicine; Visit Provider Nuclear Medicine | DX: R07.9 Chest pain, unspecified (principal) | CPT/HCPCS: 71046 ==

== ENCOUNTER 2024-05-23 10:35 | Emergency (ER) | payer OTHER, SELFPAY ==
[2024-05-23 10:59] VITALS: BP 101/60; PULSE 81; RESP 20; TEMP 36.7; O2SAT 100; BMI 22.7
--- NOTE | 2024-05-23 11:00 | ED_ITS ---
HPI - General Adult General Chief complaint: Chest Pain Stated complaint: Pain in rib cage Time Seen by Provider: 05/23/24 15:03 Source: patient Mode of arrival: ambulatory Limitations: no limitations History of Present Illness ED Provider: CARISA JACKSON PA-C HPI narrative: 18-year-old female with no significant pmhx presents to the ED today for evaluation of sternal chest pain x4 days. She reports waking up with the pain. Pain is worse with deep inspiration. No radiation of pain. She has not trialed anything for the pain at home. She was evaluated at our facility the morning after symptoms onset and was diagnosed with costochondritis. She states that she was given something for her anxiety while in the ED which improved her symptoms. She does have a history of anxiety however has never been on medication for this. Denies use of OCPs, past or present. Denies hx of VTE/ malignancy. No recent travel, long car rides, surgeries. Denies fever, chills, sore throat, sob, dyspnea, palpitations, LE pain/swelling, N/V. Related Data Previous Rx's ?Medication ?Instructions ?Recorded acetaminophen 500 mg tablet 500 mg PO Q6H PRN pain or fever 10/17/20 (Tylenol Extra Strength) #20 tabs ibuprofen 400 mg tablet 400 mg PO Q6H 7 days #28 tabs 10/17/20 amoxicillin 875 mg-potassium 1 tab PO Q12H 5 days #10 tabs 03/15/21 clavulanate 125 mg tablet (Augmentin) dicyclomine 20 mg tablet 20 mg PO QID PRN abdominal pain 06/02/21 #20 tabs ondansetron 4 mg disintegrating 4 mg PO Q6-8H PRN nausea and 06/02/21 tablet vomiting #7 tabs ibuprofen 600 mg tablet 600 mg PO Q6H PRN pain #30 tabs 10/09/21 cyclobenzaprine 10 mg tablet 10 mg PO TID PRN muscle spasm #14 10/31/21 tabs diclofenac sodium 1 % topical gel 2 g topical QID #100 grams 10/31/21 (Voltaren Arthritis Pain) cefuroxime axetil 250 mg tablet 250 mg PO Q12H #14 tabs 12/20/21 loperamide 2 mg tablet (Imodium 2 mg PO Q6H PRN loose stool #14 05/05/22 A-D) tabs ondansetron 4 mg disintegrating 4 mg PO Q6-8H PRN nausea and 05/05/22 tablet vomiting #10 tabs nitrofurantoin 100 mg PO Q12H 5 days #10 caps 10/22/22 monohydrate/macrocrystals 100 mg capsule (Macrobid) phenazopyridine 200 mg tablet 200 mg PO TID PRN Burning with 10/22/22 (Pyridium) urination 6 doses #6 tabs cephalexin 500 mg capsule 500 mg PO Q8H 7 days #21 caps 01/05/23 ibuprofen 400 mg tablet 400 mg PO Q6H PRN pain #20 tabs 01/05/23 cefuroxime axetil 500 mg tablet 500 mg PO BID 13 days #26 tabs 08/15/23 cefuroxime axetil 250 mg tablet 250 mg PO BID 7 days #14 tabs 09/26/23 doxycycline hyclate 100 mg capsule 100 mg PO BID 7 days #14 caps 09/26/23 metronidazole 500 mg tablet 500 mg PO BID 7 days #14 tabs 09/26/23 doxycycline hyclate 100 mg tablet 100 mg PO BID 7 days #14 tabs 02/17/24 fluconazole 150 mg tablet 150 mg PO Q3D 2 doses #2 tabs 02/17/24 hydroxyzine HCl 25 mg tablet 25 mg PO BID PRN anxiety #20 tabs 05/23/24 Allergies Allergy/AdvReac Type Severity Reaction Status Date / Time No Known Allergies Allergy Verified 05/23/24 11:04 Review of Systems 2 Review of Systems: Yes all other systems are reviewed and are negative PMFSH Past Medical History Attestation statement: The following information was validated with the patient. Source: old records reviewed and nursing notes reviewed Medical History Headache Social History Social History Alcohol intake: current Alcohol intake frequency: holidays/special occasions only Patient Tobacco Use Status: Never used Tobacco Smoked in Last 30 Days: No Substance Use Type: Marijuana Advance Directives: No Advance Directives Information Provided: No Patient : No Physical Exam ED Vital Signs: Vital Signs - 24 hr 05/23/24 10:59 05/23/24 14:56 05/23/24 16:50 Temperature 98.0 F 98.4 F 98.4 F Pulse Rate 81 77 78 Respiratory Rate 20 18 16 Blood Pressure 101/60 108/62 117/59 L Pulse Oximetry 100 100 100 Oxygen Delivery Method Room Air Room Air Room Air 05/23/24 17:00 Temperature 98.4 F Pulse Rate 78 Respiratory Rate 16 Blood Pressure 117/59 L Pulse Oximetry 100 Oxygen Delivery Method Room Air BMI result Body Mass Index 22.7 Vital signs stable. Not tachycardic, not hypoxic General: Appears uncomfortable however no acute distress. Skin: Warm, dry, intact. No rashes or lesions. Head: Normocephalic, atraumatic. EENT: Hearing is intact b/l. Conjunctiva clear. PERRLA. EOM intact. Moist mucous membranes.? Neck: Supple without LAD Cardiac: Chest wall symmetric. RRR. There is reproducible tenderness to anterior chest wall without palpable deformity or crepitus. no overlying skin changes. Lungs: Normal respiratory effort without accessory muscle use. CTA bilaterally. No rales, rhonchi, or wheezes.? Abdomen: Soft, non-tender, non-distended. No rebound tenderness or guarding. Positive BS x4. Back: No midline spinous or paraspinal tenderness. No step off deformity. Ext: Upper and lower extremities atraumatic, without tenderness, deformity, swelling or erythema. no calf tenderness. Neuro: AOx3. Normal speech. Ambulating with steady gait. Course Course Course Narrative: This is an RME: Additional HPI, ROS, PE not included below will be deferred to primary provider. RME assessment and note performed by: Jing Hester PA-C This is a 53-[id number]-female, with no known medical problems, who presents to the ER with complaints of left sided chest pain. Pt was seen here on 05/21 for same, dx with costochondritis. States symptoms have persisted and has not improved. Pain worsens with inspiration. vital signs stable, she is speaking in full sentences, holding left ribs. No use of OCPs, history of VTE/malignancy. No recent travel, surgeries, or hospitalizations. Plan: Labs, EKG, further ER eval needed. Reevaluation(s) Reevaluation #1: 1650 -- CBC without leukocytosis or left shift. No anemia. H&H stable. no acute electrolyte abnormality requiring intervention. no saad. normal liver function. troponin undetectable. negative covid, flu, rsv. dimer <150. low suspicion for PE. no scan warranted at this time. EKG showing normal sinus rhythm with sinus arrhythmia no acute ischemic changes or ST elevations. on re-evaluation, she reports improvement with atarax. she is well appearing and hemodynamically stable. ?msk v anxiety. will send trial script of atarax to pharmacy to take prn anxiety. she has an appointment with her PCP for follow up in two weeks. Patient has remained stable throughout ED visit today. Discussed worrisome signs and symptoms and when to return to the ED. All questions answered at this time. Patient is agreeable with disposition and stable for discharge. Medications Administered Discontinued Medications Generic Name Dose Route Start Last Admin Trade Name Freq PRN Reason Stop Dose Admin Hydroxyzine HCl 25 mg 05/23/24 15:39 05/23/24 15:56 Hydroxyzine Hcl 25 Mg Tablet PO 05/23/24 15:40 25 mg ONCE ONE Administration Medical Decision Making Medical Decision Making [facility] Narrative: This 18 year old patient presents with chest pain, with symptoms suggestive of noncardiac chest pain.? History without high risk features (no exertional component, not relieved with rest).? Minimal CAD risk factors (including age), recent negative stress test (<2 years).? Exam without evidence of volume overload. EKG without signs of active ischemia. HEART score: 0. Given the timing of pain to ED presentation, plan to send single troponin to evaluate for NSTEMI. Differential diagnosis also includes anemia, electrolyte abnormality, costochondritis, msk pain, pneumonia, pleurisy. Presentation not consistent with acute PE (PERC 0) however given continuation of pleuritic chest pain with this being her second presentation, will obtain ddimer to r/o. No concern for pneumothorax, thoracic aortic dissection, cardiac effusion or tamponade, myocarditis, pericarditis. Plan: labs, troponin, EKG, pain control, reassessment Differential Diagnosis Differential Diagnoses: The differential diagnosis associated with the presentation includes as above. Admission/Observation not indicated. Lab Data [facility] Lab Attestation statement: I reviewed the patient's lab results. as above. 05/23/24 11:25 05/23/24 11:25 Labs: Lab Results 05/23/24 05/23/24 05/23/24 Range/Units 11:21 11:25 16:05 WBC 6.5 (4.8-10.8) X10*3/uL RBC 4.17 L (4.20-5.50) X10*6/uL Hgb 13.0 (12.0-16.0) g/dl Hct 37.5 (37.0-47.0) % MCV 89.9 (80.0-98.0) fL MCH 31.2 (27.0-33.0) pg MCHC 34.7 (31.0-35.0) g/dl RDW 13.0 (11.0-16.0) % Plt Count 204 D (160-400) X10*3/uL MPV 11.3 (9.4-12.3) fL Immature Gran % (Auto) 0.6 H (0.0-0.4) % Neut % (Auto) 60.3 (45-73) % Lymph % (Auto) 28.5 (20-40) % Henry % (Auto) 8.0 (2-11) % Eos % (Auto) 2.3 (0-4) % Baso % (Auto) 0.3 (0-2) % Lymph # (Auto) 1.9 (1.2-4.9) X10*3/uL Henry # (Auto) 0.5 (0.1-1.2) X10*3/uL Eos # (Auto) 0.2 (0.0-0.4) X10*3/uL Baso # (Auto) 0.0 (0.0-0.2) X10*3/uL Abs Immat Gran (auto) 0.04 H (0.00-0.03) X10*3/uL Absolute Neuts (auto) 3.9 (2.0-8.3) x10*3/uL Absolute Nucleated RBC 0.000 (0.0-0.012) X10*3/uL Nucleated RBC % (auto) 0.0 (0.0-0.2) /100WBC D-Dimer High Sensitivty < 150 NG/ML Sodium 138 (135-145) mmol/L Potassium 4.1 D (3.3-5.1) mmol/L Chloride 113 H (96-108) mmol/L Carbon Dioxide 21 L (22-29) mmol/L Anion Gap 8 L (12-20) BUN 10 (9-16) mg/dL Creatinine 0.75 (0.5-1.4) mg/dL Estim Creat Clear Calc 98.9 Estimated GFR > 60 Random Glucose 95 (60-115) mg/dL Calcium 9.3 D (8.4-10.2) mg/dL Magnesium 1.9 (1.6-2.6) mg/dL Total Bilirubin 0.6 (0.0-1.0) mg/dL Direct Bilirubin 0.2 (0.0-0.5) mg/dL AST 31 (5-31) U/L ALT 21 (0-31) U/L Alkaline Phosphatase 64 (39-117) U/L Troponin I High Sens < 2.7 (<3.5-17.0) ng/L Total Protein 7.5 (6.5-8.0) g/dL Albumin 4.1 (3.5-5.0) g/dL Influenza Type A (PCR) NEGATIVE (Negative) Influenza Type B (PCR) NEGATIVE (Negative) RSV RNA Qual (PCR) NEGATIVE (Negative) SARS-CoV-2 RNA (RT-PCR) NEGATIVE (Negative) Independent Interpretation I performed an independent interpretation of an: EKG Interpretation: EKG showing normal sinus rhythm with sinus arrhythmia, rate of 72 beats per minute, QT 396, QTC 433, no acute ischemic changes or ST elevations External Record Review External record reviewed: Inpatient record Prescription Management I considered prescription management with: Pain Medication Social Determinants Patient?s care significantly limited by Social Determinants of Health including: Other Social Determinant of Health Critical Care Time Critical Care Time Critical Care Time: No Discharge Plan Discharge Clinical Impression: Atypical chest pain, Anxiety Patient Disposition: Home, Self-Care Instructions: Noncardiac Chest Pain (ED), Anxiety (ED) Additional Instructions: You were evaluated in the Emergency Department today for chest pain. Your evaluation has shown no signs of medical conditions requiring emergent intervention at this time. I am sending Atarax to your pharmacy. You may take this as prescribed as needed for anxiety. You received a dose of this in the ED today. I recommend that you follow up with your primary care provider as soon as possible for further testing as an outpatient. If you do not have one, a referral has been provided. Please call them to make an appointment, they will not call you. Return to the Emergency Department if you experience worsening or uncontrolled chest pain, shortness of breath, light headedness, feeling faint, nausea, vomiting, or any other concerning symptoms. Prescriptions: New hydroxyzine HCl 25 mg tablet 25 mg PO BID PRN (Reason: anxiety) Qty: 20 0RF No Action acetaminophen [Tylenol Extra Strength] 500 mg tablet 500 mg PO Q6H PRN (Reason: pain or fever) Qty: 20 0RF ibuprofen 400 mg tablet 400 mg PO Q6H 7 Days Qty: 28 0RF dicyclomine 20 mg tablet 20 mg PO QID PRN (Reason: abdominal pain) Qty: 20 0RF ondansetron 4 mg tablet,disintegrating 4 mg PO Q6-8H PRN (Reason: nausea and vomiting) Qty: 7 0RF cyclobenzaprine 10 mg tablet 10 mg PO TID PRN (Reason: muscle spasm) Qty: 14 0RF diclofenac sodium [Voltaren Arthritis Pain] 1 % gel 2 g topical QID Qty: 100 0RF Rx Instructions: apply to single elbow, wrist or hand; for hand includes palm/fingers/back of hand amoxicillin-pot clavulanate [Augmentin] 875-125 mg tablet 1 tab PO Q12H 5 Days Qty: 10 0RF ibuprofen 600 mg tablet 600 mg PO Q6H PRN (Reason: pain) Qty: 30 0RF cefuroxime axetil 250 mg tablet 250 mg PO Q12H Qty: 14 0RF ondansetron 4 mg tablet,disintegrating 4 mg PO Q6-8H PRN (Reason: nausea and vomiting) Qty: 10 0RF loperamide [Imodium A-D] 2 mg tablet 2 mg PO Q6H PRN (Reason: loose stool) Qty: 14 0RF doxycycline hyclate 100 mg capsule 100 mg PO BID 7 Days Qty: 14 0RF cefuroxime axetil 250 mg tablet 250 mg PO BID 7 Days Qty: 14 0RF metronidazole 500 mg tablet 500 mg PO BID 7 Days Qty: 14 0RF fluconazole 150 mg tablet 150 mg PO Q3D Qty: 2 0RF Rx Instructions: may repeat second dose 72 hrs after first dose if symptoms persist doxycycline hyclate 100 mg tablet 100 mg PO BID 7 Days Qty: 14 0RF nitrofurantoin monohyd/m-cryst [Macrobid] 100 mg capsule 100 mg PO Q12H 5 Days Qty: 10 0RF Rx Instructions: must administer with a meal/food phenazopyridine [Pyridium] 200 mg tablet 200 mg PO TID PRN (Reason: Burning with urination) Qty: 6 0RF ibuprofen 400 mg tablet 400 mg PO Q6H PRN (Reason: pain) Qty: 20 0RF cephalexin 500 mg capsule 500 mg PO Q8H 7 Days Qty: 21 0RF cefuroxime axetil 500 mg tablet 500 mg PO BID 13 Days Qty: 26 0RF Referrals: Physician,Unknown J [Primary Care Provider] - Stand Alone Forms: Work/School Release Interventions: ED Discharge Assessment Last Done: 05/23/24 17:00 Discharge Date/Time: 05/23/24 17:01 Print Language: Russian
--- NOTE | 2024-05-23 11:06 | ECG_ITS ---
Test Reason : CP Blood Pressure : */* mmHG Vent. Rate : 72 BPM Atrial Rate : 72 BPM P-R Int : 138 ms QRS Dur : 68 ms QT Int : 396 ms P-R-T Axes : 65 83 62 degrees QTcB Int : 433 ms Normal sinus rhythm with sinus arrhythmia Normal ECG When compared with ECG of 21-May-2024 12:31, No significant changes seen Referred By: Jing Hester Electronically Signed By: MARK ALCALA
[2024-05-23 11:39] LABS: MANUAL DIFF FLAG NO
[2024-05-23 11:44] LABS: Basophils Percent Auto 0.3 % (0-2); Eosinophils Absolute Auto 0.2 X10*3/uL (0.0-0.4); Eosinophils Percent Auto 2.3 % (0-4); Hematocrit 37.5 % (37.0-47.0); Imm Gran Abs Auto 0.04 X10*3/uL (0.00-0.03); Imm Gran Pct Auto 0.6 % (0.0-0.4); Lymphocytes Absolute Auto 1.9 X10*3/uL (1.2-4.9); Lymphocytes Percent Auto 28.5 % (20-40); Mean Corpuscular HGB Conc 34.7 g/dl (31.0-35.0); Mean Corpuscular Hemoglobin 31.2 pg (27.0-33.0); Mean Corpuscular Volume 89.9 fL (80.0-98.0); Mean Platelet Volume 11.3 fL (9.4-12.3); Monocytes Absolute Auto 0.5 X10*3/uL (0.1-1.2); Neutrophils Absolute Auto 3.9 x10*3/uL (2.0-8.3); Neutrophils Percent Auto 60.3 % (45-73); Platelet Count 204 X10*3/uL (160-400); Red Blood Count 4.17 X10*6/uL (4.20-5.50); White Blood Count 6.5 X10*3/uL (4.8-10.8)
[2024-05-23 11:56] LABS: Alanine Aminotransferase 21 U/L (0-31); Albumin Level 4.1 g/dL (3.5-5.0); Alkaline Phosphatase 64 U/L (39-117); Anion Gap 8 (12-20); Aspartate Amino Transferase 31 U/L (5-31); Bilirubin Direct 0.2 mg/dL (0.0-0.5); Bilirubin Total 0.6 mg/dL (0.0-1.0); Blood Urea Nitrogen 10 mg/dL (9-16); Calcium 9.3 mg/dL (8.4-10.2); Carbon Dioxide 21 mmol/L (22-29); Chloride 113 mmol/L (96-108); Creatinine Clr Calc Pharmacy 98.9; Estimated Glomerular Filt Rate > 60; Glucose Random 95 mg/dL (60-115); Magnesium 1.9 mg/dL (1.6-2.6); Potassium 4.1 mmol/L (3.3-5.1); Sodium 138 mmol/L (135-145); Total Protein 7.5 g/dL (6.5-8.0)
[2024-05-23 12:01] LABS: Troponin-I High Sensitivity < 2.7 ng/L (<3.5-17.0)
[2024-05-23 12:22] LABS: Influenza A PCR NEGATIVE (Negative); Influenza B PCR NEGATIVE (Negative); Resp Syncy Virus RNA Qual PCR NEGATIVE (Negative); SARS COV2 PCR INHOUSE NEGATIVE (Negative)
[2024-05-23 14:56] VITALS: BP 108/62; PULSE 77; RESP 18; TEMP 36.9; O2SAT 100
[2024-05-23] MEDS: hydrOXYzine HCL 25 MG TABLET PO (15:56)
[2024-05-23 16:26] LABS: D Dimer High Sensitivity < 150 NG/ML
[2024-05-23 16:50] VITALS: BP 117/59; PULSE 78; RESP 16; TEMP 36.9; O2SAT 100
[2024-05-23 17:00] VITALS: BP 117/59; PULSE 78; RESP 16; TEMP 36.9; O2SAT 100
--- OUTSIDE RECORDS SUMMARY | 2024-05-23 17:50 | XMS_ITS | Encounter Summary ---
Author Organization [facility] Address [address] [place] [phone] Phone Care Team Providers Care Equipment Oiler Name Role Phone Provider, Deneen WILLIAM Primary Care Provider Encounter Details Date Type Department Care Team (Late st Contact Info) Description 08/27/2014 Documentation [facility] Family Medicine [address] [place] [address] Family Medicine, Physician [address] [place] [address] Social History Tobacco Use Types Packs/Day Years [...] on filedocumented in this encounter Care Teams Equipment Oiler Relationship Specialty Start Date End Date Provider, MD Deneen [address] [place] [phone] PCP - General Pediatrics 03/23/22 05/17/24 documented as of this encounter
--- OUTSIDE RECORDS SUMMARY | 2024-05-23 17:50 | XMS_ITS | Encounter Summary ---
Author Organization [facility] Address [address] [place] [address] Care Team Providers Care French Edge Operator Name Role Phone Kvng Arriaza MD Primary Care Provider Reason for Visit * Reason Onset Date Comments Hospitalization/ER 05/23/2024 Encounter Details Date Type Department Care Team (Late st Contact Info) Description 05/23/2024 Telephone Adult Medicine [facility] [address] [place] [phone] Susan Parikh MD [address] [place] [phone] Hospitalization/ER Social History Tobacco Use Types Packs/Day Years Used Date Smoking Tobacco: Never Assessed Comments Unknown Sex and Gender Information Value Date Recorded Sex Assigned at Not on file Legal Sex Female 8:18 PM EST Gender Identity Not on file Sexual Orientation Not on file documented as of this encounter Progress Notes * Marcela Ocasio RN - 05/23/2024 10:17 AM EDT Scheduled new pt ER follow up for 05/30 at 10:[address] Arriaza * Fabiana Ruiz - 05/23/2024 9:37 AM EDT Hospital/ER follow up appointment needed Hospital patient was treated at: [facility] Was this only an ER visit or was the patient admitted to the hospital? ER Visit only Date of visit if ER visit only: 05/21/24 If patient was admitted what was the date of discharge? Reason/diagnosis for visit or stay: SOB, cartilage pain, near sternum, xrays taken, blood work. When was the patient told to follow up? Within a few days. Patient has [employer], unable to verify today as the site is overloaded for the of the month. . I will continueto try updating in our system Was visit or stay related to an injury? If yes, what was the date of injury (DOI)? No If yes, was the injury due to: Not 3rd constitution party related documented in this encounter Plan of Treatment Upcoming Encounters Date Type Department Care Team (Late st Contact Info) Description 05/30/2024 10:30 AM EDT Office Visit Adult Medicine [facility] [address] [place] [phone] Kvng Arriaza MD [address] [place] [address] documented as of this encounter Visit Diagnoses Not on filedocumented in this encounter Care Teams French Edge Operator Relationship Specialty Start Date End Date Kvng Arriaza MD [address] [place] [address] PCP - General Internal Medicine 05/23/24 documented as of this encounter
--- OUTSIDE RECORDS SUMMARY | 2024-05-23 17:50 | XMS_ITS | Clinical Summary ---
Author Organization [facility] [address] [place] [address] Address [address] [place], [place] Phone Care Team Providers Care Manager Convention Name Role Phone Kvng Arriaza MD Primary Care Provider Encounters Date Type Department Care Team Description 05/23/2024 Telephone Adult Medicine [facility] [address] [place] [address] Susan Parikh MD Hospitalization/ER from Last 3 Months Social History Tobacco Use Types Packs/Day Years Used Date Smoking Tobacco: Never Assessed Comments Unknown Sex and Gender Information Value Date Recorded Sex Assigned at Not on file Legal Sex Female 8:18 PM EST Gender Identity Not on file Sexual Orientation Not on file Plan of Treatment Upcoming Encounters Date Type Department Care Team ([facility] st Contact Info) Description 05/30/2024 10:30 AM EDT Office Visit Adult [address] [phone] Kvng Arriaza MD [address] [place] [address] Health Maintenance Due Date Last Done Comments [...] - 2023-2 5 season) 2023 Influenza Vaccine (Season Ended) 2024 HIB Vaccines Aged Out No longer eligi [...] patient's age to complete this topic [place] [address] [place] [id number] Care Teams Manager Convention Relationship Specialty Start Date End Date Kvng Arriaza MD [address] [place] [address] PCP - General Internal Medicine 05/23/24
--- OUTSIDE RECORDS SUMMARY | 2024-05-23 17:50 | XMS_ITS | Clinical Summary ---
Author Organization [facility] Address [address] [place] [address] Phone Care Team Providers Care Pearl Cutter Name Role Phone Unavailable Primary Care Provider [...] Date Tendonitis 10/09/2021 Overview (10/14/2021): Seen at [facility] ER s/p fall down a few stairs Generalized abdominal pain 01/09/2021 Overview (01/09/2021): 11/2020 Seen in [facility] u/s, CT scan and laabs done; ER [...] HPA; also provided outside community supports if longshore equipment operator therapy needed in the future Assessment & Plan (01/06/2021 2:30 PM EST): + PHQ9 no SI PSC-17 S2B1 positive; incident at school last week injury to L arm ; requested mom make appt w/ [facility] HPA; also provided outside community supports if nursing home therapy needed in the future Personal history [...] PM EST): Pt under the care of [facility] client service consultant; 2nd appt will take place on 04/19/20 Assessment & Plan (04/02/2020 6:36 PM EST): See over view; strongly advise support which pt/mom agreed to meet [facility] Yolie Sommers for warm hand off Assessment [...] to PE; discussed importance of sleep hygiene; [facility] to assist with strategies for night time restlessness Assessment & Plan (03/26/2020 10:13 PM EST): Day/night cycle reversed; sleep hygiene is a concern that needs to be discussed ongoing dorothy with f/u in 1 week Brain concussion Overview (10/23/2020): no LOC seen 10/17/20 at [facility] s/p fall on cement while playing soccer [...] Pt seen in ER on 12/07/20 at [facility]; pt had abdominal and pelvic CT scan and u/s w/ no significant findings other than age appropriate bilat cysts/follicultes; 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 and [facility] advsied referral to pattern vault clerk; pt has not returned thus for for [...] 2023-2 5 season) 2023 04/05/2021, 07/23/2020, 07/02/2020 DTaP,Tdap,and Td Vaccines (7 - Td or [...] Completed 01/06/2021, 017 Procedures * Due to [facility] law, this organization might not be sharing sensitive test results. Procedure Name Priority Date/Time Associated Diagnosis Comments CHLAMYDIA AND GONORRHEA, AMPLIFIED Routine 01/06/2021 1:34 PM EST Encounter for well child visit with abnormal findings from Last 3 Months or Most Recently Relevant to Health Maintenance Results * Due to [facility] law, this organization might not be sharing sensitive test results. * Chlamydia and Gonorrhoea, Amplified (01/06/2021 1:34 PM EST) Chlamydia Trachomatis, DNA Probe NEGATIVE (NEG) [facility] Comment: No Chlamydia Trachomatis RNA detected in this patient's sample ? (REFERENCE RANGE/NORMAL VALUE: NOT DETECTED) ? Note: This test uses hand cementer- mediated amplification method to detect rRNA from C. Trachomatis URINE GC AMP PROBE NEGATIVE (NEG) [facility] Comment: No Neisseria Gonorrhoeae RNA detected in this patient's sample ? (REFERENCE RANGE/NORMAL VALUE: NOT DETECTED) ? NOTE: This test uses hand cementer-mediated amplification method to detect rRNA from N.Gonorrhoeae. [...] risk of sexual abuse. Consult the [facility] if needed. Contact phone number . Therapeutic failure or success cannot be determined with the Aptima Combo2 assay since nucleic acid may persist following appropriate antimicrobial therapy. The Centers for Disease Control and Prevention (CDC) recommends confirmatory retesting using culture or a different nucleic acid amplification test when positive results occur, if indicated. Testing performed or reported by [facility], a Service of [facility], [address] [place] [id number] Sina Diaz MD, Clinical Sociologist [facility]# [id number] 01/06/2021 1:34 PM EST 01/06/2021 10:38 PM EST us Karen Delacruz NP LAB MICROBIOLOGY - GENERAL ORDER DELANO Final Result [facility] from Last 3 Months or Most Recently Relevant to Health Maintenance
--- OUTSIDE RECORDS SUMMARY | 2024-05-23 17:50 | XMS_ITS | Encounter Summary ---
Author Organization [facility] Address [address] [place] [address] Phone Care Team Providers Care Preschool Aide Name Role Phone Provider, Deneen WILLIAM Primary Care Provider [phone] Encounter Details Date Type Department Care Team ([facility] Contact Info) Description 10/08/2016 Conversion Encounter [facility] - [address] [phone] Social History Tobacco Use Types Packs/Day Years [...] on filedocumented in this encounter Care Teams Preschool Aide Relationship Specialty Start Date End Date Provider, MD Deneen [address] [place] [phone] PCP - General Pediatrics 03/23/22 05/17/24 documented as of this encounter
--- OUTSIDE RECORDS SUMMARY | 2024-05-23 17:50 | XMS_ITS | Clinical Summary ---
Author Organization [facility] Address [address] [place] [address] Care Team Providers Care Hooker Up Name Role Phone Unavailable Primary Care Provider [...] 3 - 19 + 3-dose series) 10/15/2022 [id number] ( - 2023- season) 2023 07/23/2020, 07/02/2020 Imm-Influenza (#1) 2023 Alcohol and Drug Screen 02/23/2024 Depression Annual Screen 02/23/2024 Imm-Hepatitis A Aged Out No longer el igible based on patient's age to complete this topic Insurance [employer]
== END 2024-05-23 17:01 | disposition home or self-care (01) ==
PROVIDERS: Physician Assistant Medical; Emergency Provider Emergency Medicine
DX: R07.89 Other chest pain (principal); F41.9 Anxiety disorder, unspecified; Z03.818 Encounter for observation for suspected exposure to other biological agents ruled out
CPT/HCPCS: 0241U; 36415; 80048; 80076; 83735; 84484; 85025; 85379; 93005; 99283; 99285

== ENCOUNTER → 2024-05-23 11:06 | Outpatient (BNV) | payer OTHER, SELFPAY | PROVIDERS: Emergency Provider Emergency Medicine; Visit Provider Internal Medicine | DX: R07.9 Chest pain, unspecified (principal) | CPT/HCPCS: 93010 ==

== ENCOUNTER 2024-10-23 12:11 | Emergency (ER) | payer OTHER, SELFPAY ==
[2024-10-23 12:29] VITALS: BP 112/56; PULSE 78; RESP 18; TEMP 36.6; O2SAT 98; BMI 23.0
--- NOTE | 2024-10-23 12:32 | ED_ITS ---
HPI - General Adult General Chief complaint: Urogenital-Female Stated complaint: quest uti ear ring stuck in ear Time Seen by Provider: 10/23/24 13:01 Source: patient Mode of arrival: ambulatory Limitations: no limitations History of Present Illness ED Provider: DR. Steiner HPI narrative: 19-year-old female came in for multiple complaints. 1. had a new piercing last week to both ears now the earring is imbedded in to the right ear causing swelling and redness with inflammation to the right ear. 2. Complaining of dysuria and frequency urination noticed a foul smell discharge from the vagina, patient currently not sexually active but concern about STDs from her previous partner. No abdominal pain, no nausea, no vomiting, no diarrhea. Related Data Previous Rx's ?Medication ?Instructions ?Recorded acetaminophen 500 mg tablet 500 mg PO Q6H PRN pain or fever 10/17/20 (Tylenol Extra Strength) #20 tabs ibuprofen 400 mg tablet 400 mg PO Q6H 7 days #28 tab s 10/17/20 amoxicillin 875 mg-potassium 1 tab PO Q12H 5 days #10 tabs 03/15/21 clavulanate 125 mg tablet (Augmentin) dicyclomine 20 mg tablet 20 mg PO QID PRN abdominal pain 06/02/21 #20 tabs ondansetron 4 mg disintegrating 4 mg PO Q6-8H PRN naus ea and 06/02/21 tablet vomiting #7 tabs ibuprofen 600 mg tablet 600 mg PO Q6H PRN pain #30 t abs 10/09/21 cyclobenzaprine 10 mg tablet 10 mg PO TID PRN muscle s pasm #14 10/31/21 tabs diclofenac sodium 1 % topical gel 2 g topical QID #100 grams 10/31/21 (Voltaren Arthritis Pain) cefuroxime axetil 250 mg tablet 250 mg PO Q12H #14 tab s 12/20/21 loperamide 2 mg tablet (Imodium 2 mg PO Q6H PRN loose stool #14 05/05/22 A-D) tabs ondansetron 4 mg disintegrating 4 mg PO Q6-8H PRN naus ea and 05/05/22 tablet vomiting #10 tabs nitrofurantoin 100 mg PO Q12H 5 days #10 ca ps 08/31/23 monohydrate/macrocrystals 100 mg capsule (Macrobid) phenazopyridine 200 mg tablet 200 mg PO TID PRN Burnin g with 10/22/22 (Pyridium) urination 6 doses #6 tabs cephalexin 500 mg capsule 500 mg PO Q8H 7 days #21 cap s 01/05/23 ibuprofen 400 mg tablet 400 mg PO Q6H PRN pain #20 t abs 01/05/23 cefuroxime axetil 500 mg tablet 500 mg PO BID 13 days #26 tabs 08/15/23 cefuroxime axetil 250 mg tablet 250 mg PO BID 7 days # 14 tabs 09/26/23 doxycycline hyclate 100 mg capsule 100 mg PO BID 7 day s #14 caps 09/26/23 metronidazole 500 mg tablet 500 mg PO BID 7 days #14 t abs 09/26/23 doxycycline hyclate 100 mg tablet 100 mg PO BID 7 days #14 tabs 02/17/24 fluconazole 150 mg tablet 150 mg PO Q3D 2 doses #2 tab s 02/17/24 hydroxyzine HCl 25 mg tablet 25 mg PO BID PRN anxiety #20 tabs 05/23/24 cefuroxime axetil 250 mg tablet 250 mg PO BID #14 tabs 10/23/24 Allergies Allergy/AdvReac Type Severity Reaction Status Date / Time No Known Allergies Allergy Verified 10/23/24 12:30 Review of Systems 2 Review of Systems: All other systems are reviewed and are negative Constitutional: Reports as per HPI and Reports no additional constitutional complaints Eyes: Reports as per HPI and Reports no additional eye complaints Reports system reviewed and no additional complaints, except as documented Cardiovascular: Reports as per HPI and Reports no additional cardiovascular complaints Respiratory: Reports as per HPI and Reports no additional respiratory complaints Gastrointestinal: Reports as per HPI and Reports no additional gastrointestinal complaints Genitourinary: Reports no additional female genitourinary complaints Musculoskeletal: Reports no additional musculoskeletal complaints Skin/Breast: Reports system reviewed and no additional complaints, except as docu Psychiatric: Reports no additional psychiatric complaints Endocrine: Reports no additional endocrine complaints Hematologic/Lymphatic: Reports no additional hematologic/lymphatic complaints Allergic/Immunologic: Reports no additional allergic/immunologic complaints Reports system reviewed and no additional complaints, except as documented and Reports Abnormal speech present PMFSH Past Medical History Medical History Headache Social History Social History Alcohol intake: current Alcohol intake frequency: holidays/special occasions only Patient Tobacco Use Status: Never used Tobacco Smoked in Last 30 Days: No Use of substances other than those prescribed or required for medical reasons: Yes Substance Use Type: Marijuana Substance Use Frequency: Daily Advance Directives: No Advance Directives Information Provided: No Do you have a plan to hurt others: No Plan Patient : No Physical Exam ED Vital Signs: Vital Signs - 24 hr 10/23/24 12:29 Temperature 98 F Pulse Rate 78 Respiratory Rate 18 Blood Pressure 112/56 L Pulse Oximetry 98 BMI result Body Mass Index 23.0 Vital signs have been reviewed and appear to be correct. Blood pressure elevated. Heart rate normal. Respiratory rate normal. Temperature normal. Oxygen saturation normal. Appearance: Alert. Oriented X3. No acute distress. Head: Normal external exam. Normocephalic. Atraumatic. No Shipley signs noted. No raccoon eyes noted Eyes: PERRLA. EOMI. Conjunctiva and sclera normal. Eyelids normal. ENT: right ear lobule area of swelling, erythema, tenderness, with imbedded foreign body reported as a earring, tender to touch. TM's Normal. Pharynx normal. Uvula midline. Moist mucous membranes. No trismus noted. No drooling noted. No muffled voice noted. Neck: Normal inspection. Neck supple. FROM. No adenopathy. Thyroid Normal. No meningeal signs. No neck mass noted. CVS: Normal heart rate and rhythm. Heart sound normal. No murmurs noted. Pulses normal throughout. Respiratory: No respiratory distress. Painless inspiration. Breath sounds normal. No wheezes/rales/rhonchi noted. Chest nontender. No accessory muscle usage noted or decreased air movement noted. Abdomen: Soft and nontender. Bowel sounds normal in all 4 quadrants. No distention noted. No organomegaly noted. No visible injury noted. Back: No CVA tenderness. Full range of motion noted. Skin: Skin warm and dry. Normal skin color. Normal skin turgor. No rashes/lesions/lacerations noted. Extremities: No lower extremity edema. Extremities exhibit normal range of motion. Extremities nontender. Neuro: Oriented X 3. Cranial nerve exam: II-XII are grossly intact No motor deficit. No sensory deficit. Reflexes normal. Course Course Course Narrative: RME: 19-year-old female presents to ED for questionable UTI symptoms patient states vaginal discharge and increased urinary frequency. Patient's secondary complaint is hearing being stuck in right ear not able to remove. Reevaluation(s) Reevaluation #1: 1. UTI will start the patient on cefuroxime 250 mg b.i.d.. 2. Check for STD. 3. s/p earring removal from the right ear lobule Time: 14:06 Medications Administered Discontinued Medications Generic Name Dose Route Start Last Admin Trade Name Freq PRN Reason Stop Dose Admin Lidocaine HCl 5 ml 10/23/24 13:25 10/23/24 13:40 Lidocaine Hcl 1 % Mpf 5 Ml Vial SUBCUT 10/23/24 13:26 5 ml ONCE ONE Administration Procedures Procedure Narrative Procedure Narrative: right ear lobule imbedded earring. Injecting 3 cc of lidocaine 1% into the area. Needed less than 0.5 cm incision with scalpel blade size 11. earing was removed from the right ear. Medical Decision Making Differential Diagnosis Differential Diagnoses: The differential diagnosis associated with the presentation includes ( UTI, STDs, foreign body in the right ear lobule) Lab Data Labs: Lab Results 10/23/24 Range/Units 12:39 Urine Color Yellow Urine Appearance Clear Urine pH 6.0 (5.0-9.0) Ur Specific Brea 1.020 (1.005-1.025) Urine Protein Negative (Neg-Trace) mg/dL Urine Glucose (UA) Negative (Negative) mg/dL Urine Ketones Negative (Negative) mg/dL Urine Blood Negative (Negative) Urine Nitrite Negative (Negative) Ur Leukocyte Esterase Large (3+) H (Negative) Urine Test NEGATIVE (NEGATIVE) Discharge Plan Discharge Clinical Impression: Embedded earring of right ear, UTI (urinary tract infection) Patient Disposition: Home, Self-Care Instructions: Urinary Tract Infection in Women (ED) Additional Instructions: do not insert any earring in the new piercing otherwise will get infected and embedded in the lobule again. Prescriptions: New cefuroxime axetil 250 mg tablet 250 mg PO BID Qty: 14 0RF No Action acetaminophen [Tylenol Extra Strength] 500 mg tablet 500 mg PO Q6H PRN (Reason: pain or fever) Qty: 20 0RF ibuprofen 400 mg tablet 400 mg PO Q6H 7 Days Qty: 28 0RF dicyclomine 20 mg tablet 20 mg PO QID PRN (Reason: abdominal pain) Qty: 20 0RF ondansetron 4 mg tablet,disintegrating 4 mg PO Q6-8H PRN (Reason: nausea and vomiting) Qty: 7 0RF cyclobenzaprine 10 mg tablet 10 mg PO TID PRN (Reason: muscle spasm) Qty: 14 0RF diclofenac sodium [Voltaren Arthritis Pain] 1 % gel 2 g topical QID Qty: 100 0RF Rx Instructions: apply to single elbow, wrist or hand; for hand includes palm/fingers/back of hand amoxicillin-pot clavulanate [Augmentin] 875-125 mg tablet 1 tab PO Q12H 5 Days Qty: 10 0RF ibuprofen 600 mg tablet 600 mg PO Q6H PRN (Reason: pain) Qty: 30 0RF cefuroxime axetil 250 mg tablet 250 mg PO Q12H Qty: 14 0RF ondansetron 4 mg tablet,disintegrating 4 mg PO Q6-8H PRN (Reason: nausea and vomiting) Qty: 10 0RF loperamide [Imodium A-D] 2 mg tablet 2 mg PO Q6H PRN (Reason: loose stool) Qty: 14 0RF doxycycline hyclate 100 mg capsule 100 mg PO BID 7 Days Qty: 14 0RF cefuroxime axetil 250 mg tablet 250 mg PO BID 7 Days Qty: 14 0RF metronidazole 500 mg tablet 500 mg PO BID 7 Days Qty: 14 0RF fluconazole 150 mg tablet 150 mg PO Q3D Qty: 2 0RF Rx Instructions: may repeat second dose 72 hrs after first dose if symptoms persist doxycycline hyclate 100 mg tablet 100 mg PO BID 7 Days Qty: 14 0RF nitrofurantoin monohyd/m-cryst [Macrobid] 100 mg capsule 100 mg PO Q12H 5 Days Qty: 10 0RF Rx Instructions: must administer with a meal/food phenazopyridine [Pyridium] 200 mg tablet 200 mg PO TID PRN (Reason: Burning with urination) Qty: 6 0RF ibuprofen 400 mg tablet 400 mg PO Q6H PRN (Reason: pain) Qty: 20 0RF cephalexin 500 mg capsule 500 mg PO Q8H 7 Days Qty: 21 0RF cefuroxime axetil 500 mg tablet 500 mg PO BID 13 Days Qty: 26 0RF hydroxyzine HCl 25 mg tablet 25 mg PO BID PRN (Reason: anxiety) Qty: 20 0RF Print Language: Hong Konger
--- OUTSIDE RECORDS SUMMARY | 2024-10-23 12:48 | XMS_ITS | Clinical Summary ---
Author Organization [facility] Address [address] [place] [address] Care Team Providers Care Photographer Lithographic Name Role Phone Unavailable Primary Care Provider [...] Health Maintenance Due Date Last Done Comments Anxiety Screening 2003 Hepatitis C Screening 2003 Tobacco Screening 2003 Imm-MMR (1 of 1 - Standard series) 10/15/2004 Chlamydia Screening 10/15/2016 Gonorrhea Screening 10/15/2016 Imm-Varicella (1 of 2 - 13+ 2-dose series) 10/15/2016 HIV Screening 10/15/2018 Imm-HPV (1 - 3-dose series) 10/15/2018 Relationship Safety Screening/Counseling 10/15/2018 Hypertension Screening (#1) 10/15/2021 Imm-DTaP/Tdap/Td (1 - Tdap) 10/15/2022 Imm-Hepatitis B (1 of 3 - 19 + 3-dose series) 10/15/2022 [id number] (2023- season) 2023 07/23/2020, 07/02/2020 Alcohol and Drug Screen 02/23/2024 Depression Annual Screen 02/23/2024 Imm-Influenza (#1) 2024 Imm-Hepatitis A Aged Out No longer el igible based on patient's age to complete this topic Insurance [employer]
--- OUTSIDE RECORDS SUMMARY | 2024-10-23 12:48 | XMS_ITS | Clinical Summary ---
Author Organization [facility] Address [address] [place] [phone] Phone Care Team Providers Care Pattern Room Attendant Name Role Phone Unavailable Primary Care Provider [...] Date Tendonitis 10/09/2021 Overview (10/14/2021): Seen at [facility] ER s/p fall down a few stairs Generalized abdominal pain 01/09/2021 Overview (01/09/2021): 11/2020 Seen in [facility] u/s, CT scan and laabs done; ER [...] HPA; also provided outside community supports if [place] [facility] therapy needed in the future Assessment & Plan (01/06/2021 2:30 PM EST): + PHQ9 no SI PSC-17 S2B1 positive; incident at school last week injury to L arm ; requested mom make appt w/ BH HPA; also provided outside community supports if ocean transportation intermediary therapy needed in the future Personal history [...] PM EST): Pt under the care of [facility] health care consultant; 2nd appt will take place on 04/19/20 Assessment & Plan (04/02/2020 6:36 PM EST): See over view; strongly advise support which pt/mom agreed to meet [facility] Yolie Sommers for warm hand off Assessment [...] to PE; discussed importance of sleep hygiene; [facility] to assist with strategies for night time restlessness Assessment & Plan (03/26/2020 10:13 PM EST): Day/night cycle reversed; sleep hygiene is a concern that needs to be discussed ongoing dorothy with f/u in 1 week Brain concussion Overview (10/23/2020): no LOC seen 10/17/20 at [facility] s/p fall on cement while playing soccer [...] Pt seen in ER on 12/07/20 at [facility]; pt had abdominal and pelvic CT scan and u/s w/ no significant findings other than age appropriate bilat cysts/follicultes; 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 and [facility] advsied referral to division plant engineer; pt has not returned thus for for [...] 77 07/01/2021 1:27 PM EDT Temperature 37.5 C (99.5 F) 07/01/2021 1:27 PM EDT Respiratory Rate - - Oxygen Saturation 99% 05/09/2021 3:38 PM EDT Inhaled Oxygen Concentration - - Weight 56.7 kg (125 lb) 07/01/2021 1:27 PM EDT Height 161.3 cm (5' 3.5 ) 01/06/2021 12:53 PM ES T Body Mass Index - - Plan of Treatment Health Maintenance Due Date Last Done Comments Men B Vaccine (1 of 2 - Standard) 2019 Influenza Vaccines (#1) 2024 01/07/20 21, 04/02/2020, 11/23/2018, Additional history exists COVID-19 Vaccine (4 - 2024-2 6 season) 2024 04/05/2021, 07/23/2020, 07/02/2020 DTaP,Tdap,and Td Vaccines (7 [...] Completed 01/06/2021, 017 Procedures * Due to [facility] law, this organization might not be sharing sensitive test results. Procedure Name Priority Date/Time Associated Diagnosis Comments CHLAMYDIA AND GONORRHEA, AMPLIFIED Routine 01/06/2021 1:34 PM EST Encounter for well child visit with abnormal findings from Last 3 Months or Most Recently Relevant to Health Maintenance Results * Due to [place] [employer] law, this organization might not be sharing sensitive test results. * Chlamydia and Gonorrhoea, Amplified (01/06/2021 1:34 PM EST) Chlamydia Trachomatis, DNA Probe NEGATIVE (NEG) [facility] Comment: No Chlamydia Trachomatis RNA detected in this patient's sample (REFERENCE RANGE/NORMAL VALUE: NOT DETECTED) Note: This test uses school based therapist- mediated amplification method to detect rRNA from C. Trachomatis URINE GC AMP PROBE NEGATIVE (NEG) [facility] Comment: No Neisseria Gonorrhoeae RNA detected in this patient's sample (REFERENCE RANGE/NORMAL VALUE: NOT DETECTED) NOTE: This test uses school based therapist-mediated amplification method to detect rRNA from N.Gonorrhoeae. [...] without risk of sexual abuse. Consult the [facility] if needed. Contact phone number . Therapeutic failure or success cannot be determined with the Aptima Combo2 assay since nucleic acid may persist following appropriate antimicrobial therapy. The Centers for Disease Control and Prevention (CDC) recommends confirmatory retesting using culture or a different nucleic acid amplification test when positive results occur, if indicated. Testing performed or reported by [facility], a Service of [facility], [address], [place] [address] Sina Diaz MD, [employer] [facility]# [id number] 01/06/2021 1:34 PM EST 01/06/2021 10:38 PM EST Karen Delacruz NP LAB MICROBIOLOGY - GENERAL ORDER DELNAO Final Result [facility] from Last 3 Months or Most Recently Relevant to Health Maintenance
--- OUTSIDE RECORDS SUMMARY | 2024-10-23 12:48 | XMS_ITS | Clinical Summary ---
Author Organization [facility] [address] [facility] Address [address] [place] [phone] Phone Care Team Providers Care Driver Medic Name Role Phone Kvng Arriaza MD Primary Care Provider Active Problems Problem Noted Date Diagnosed Date Adjustment reaction with anxiety and depression 01/06/2021 Overview (02/10/2024): + PHQ9 no SI PSC-17 S2B1 positive; incident at school last week injury to L arm ; requested mom make appt w/ BH HPA; also provided outside community supports if half-way therapy needed in the future Last Assessment & Plan: + PHQ9 no SI PSC-17 S2B1 positive; incident at school last week injury to L arm ; requested mom make appt w/ BH HPA; also provided outside community supports if vermin exterminator therapy needed in the future Migraine with aura and witho ut status migrainosus, not intractable 08/09/2020 Overview (02/10/2024): Last Assessment & Plan: Pt continue on Topiramate which helps but set back of recent concussion w/o LOC; F/u in 1 mo or prior prn Immunizations Name Administration Dates Next Due DTaP (Infanrix) 6wks to less than 7yo ,01/19/2005,02/19/2004,12/17 [id number] (Pediarix) 6 w ks to less than 7yo 04/17/2004 HPV 9-valent (Gardisil) 9yo to less than 46yo 12/13/2015,08/12/2015,05/29/2015 Hepatitis A Pediatric (Havri x; Vaqta) 12mo to less than 19yo 05/29/2015,05/28/2014 Hepatitis B Pediatric (Enger ix B; Recombivax HB) to less than 20 yo 2003,2003 HiB 01/19/2005, 5,02/19/2004,12/17 IPV Inactivated polio (Ipol) 6wks and older 01/16/2008,02/19/2004,2003 Influenza trivalent, 0.5mL, preservative free (Fluarix; FluLaval; Fluzone) ages 6mo and older (Afluria) 3 years and older 01/06/2021,04/02/2020,11/23/2018,05/28,01/05/2012,01/19/2005 Influenza trivalent, with pr eservative (Fluzone; Afluria) 6mo and older 01/04/2013 MMR, measles mumps and rubel la Live (Priorix; M-M-R II) 12mo and older 01/16/2008,10/31/2004 Meningococcal MCV4P 01/06/2021,06/02/2016 Pneumococcal Conjugate Vacci ne, 7 Valent 01/19/2005,04/17/2004,02/19/2004,12/17 Tdap Tetanus diptheria acell ular pertussis (Boostrix; Adacel) 7yo and older 05/29/2015 Varicella live (Varivax) 12m o and older 01/05/2012,10/31/2004 Surgical History Surgery Date Site/Laterality Comments OTHER SURGICAL HISTORY PROCEDURE: DENIES PREVIOUS SURGERY Family History Medical History Relation Name Comments No Known Problems Brother 1 No Known Problems Brother 2 No Known Problems Brother 3 No Known Problems Brother 4 No Known Problems Father Diabetes Maternal Grandfather Kidney failure Hypertension Maternal Grandfather Diabetes Maternal Grandmother No Known Problems Mother Coronary artery disease Paternal Grandfather No Known Problems Paternal Grandmother No Known Problems Sister 1 Asthma Sister 2 Relation Name Status Comments Brother 1 Alive Brother 2 Alive Brother 3 Alive Brother 4 Alive Father Alive Maternal Grandfather (Age 60) Maternal Grandmother Alive Mother Alive Paternal Grandfather (Age 70) Paternal Grandmother Alive Sister 1 Alive Sister 2 Alive Social History Tobacco Use Types Packs/Day Years Used Date Smoking Tobacco: Never Smokeless Tobacco: Never Alcohol Use Standard Drinks/Week Comments Yes 0 (1 standard drink = 0.6 oz pur e alcohol) Comments Unknown Sex and Gender Information Value Date Recorded Sex Assigned at Not on file Legal Sex Female 2:32 PM EST Gender Identity Not on file Sexual Orientation Not on file Obstetrics History Last Filed Vital Signs Vital Sign Reading Time Taken Comments Blood Pressure 105/60 09/14/2022 10:10 AM EDT Pulse 80 09/14/2022 10:10 AM EDT Temperature - - Respiratory Rate - - Oxygen Saturation - - Inhaled Oxygen Concentration - - Weight 65.6 kg (144 lb 9.6 oz) 09/14/2022 10:10 AM EDT Height 160 cm (5' 3 ) 09/14/2022 10:10 AM EDT Body Mass Index 25.61 09/14/2022 10:10 AM EDT Plan of Treatment Health Maintenance Due Date Last Done Comments Gonorrhea/Chlamydia Screening 2003 Meningococcal B Vaccine (1 of 2 - Standard) 2019 Annual Well Child Visit (3-21 years old) 09/01/2022 HIV Screening 09/01/2022 Hepatitis C Screening 09/01/2022 Social Influencers of Health Screening 09/01/2022 COVID-19 Vaccine ( season) 2023 04/05/2021, 07/23/2020, 07/02/2020 Depression Screening 02/23/2024 Cervical Cancer Screening: Pap Smear 10/15/2024 Influenza Vaccine (#1) 2024 , 04/02/2020, 11/23/2018, Additional history exists DTaP,Tdap,and Td Vaccines (7 - Td or Tdap) 05/28/2025 05/29/2015, 01/16/2008, 01/19/2005, Additional history exists Hepatitis B Vaccines Completed 04/17/2004, 2003, 2003 HIB Vaccines Completed 01/19/2005, 12/24, 04/17/2004, Additional history exists Pneumococcal Vaccine: Pediatrics (0 to 5 Years) and At-Risk Patients (6 to 49 Years) Completed 01/19/2005, 04/17/2004, 02/19/2004, Additional history exists IPV Vaccines Completed 01/16/2008, 12/24, 04/17/2004, Additional history exists MMR Vaccines Completed 01/16/2008, 10/31/2004 Varicella Vaccines Completed 01/05/2012, 10/31/2004 Hepatitis A Vaccines Completed 05/29/2015, 05/29/19 15 HPV Vaccines Completed 12/13/2015, 07/24, 05/29/2015 Meningococcal ACWY Vaccine Completed 01/06/2021, RSV Immunization Patients Under 20 months Aged Out No longer eligible based on patient's age to complete this topic Insurance [facility] Care Teams Driver Medic Relationship Specialty Start Date End Date Kvng Arriaza MD [address] [place] [address] PCP - General Internal Medicine 05/23/24
--- OUTSIDE RECORDS SUMMARY | 2024-10-23 12:48 | XMS_ITS | Encounter Summary ---
Author Organization [facility] Address [address] [place] [phone] Phone Care Team Providers Care Medical Secretary Receptionist Name Role Phone Provider, Deneen WILLIAM Primary Care Provider [phone] Encounter Details Date Type Department Care Team ([facility] Contact Info) Description 10/08/2016 Conversion Encounter [facility] - [address] [id number] Social History Tobacco Use Types Packs/Day Years [...] on filedocumented in this encounter Care Teams Medical Secretary Receptionist Relationship Specialty Start Date End Date Provider, MD Deneen [address] [place] [phone] PCP - General Pediatrics 03/23/22 05/17/24 documented as of this encounter
--- OUTSIDE RECORDS SUMMARY | 2024-10-23 12:48 | XMS_ITS | Encounter Summary ---
Author Organization [facility] Address [address] [place] [phone] Phone Care Team Providers Care Machine Cutter Name Role Phone Provider, Deneen WILLIAM Primary Care Provider [phone] Encounter Details Date Type Department Care Team (Late st Contact Info) Description 08/27/2014 Documentation [facility] Family Medicine [address] [place] [address] Family Medicine, Physician [address] [place] [address] Social History Tobacco Use Types Packs/Day Years [...] on filedocumented in this encounter Care Teams Machine Cutter Relationship Specialty Start Date End Date Provider, MD Deneen [address] [place] [phone] PCP - General Pediatrics 03/23/22 05/17/24 documented as of this encounter
[2024-10-23 12:49] LABS: Appearance Urine Clear; Glucose Urine UA Negative (Negative); PH 6.0 (5.0-9.0); Specific Gravity - Urine 1.020 (1.005-1.025); UMIC TRIGGER UACC YES
[2024-10-23 12:52] LABS: UPreg QC Valid YES
[2024-10-23] MEDS: Lidocaine HCl 1 % MPF 5 ML VIAL SUBCUT (13:40)
[2024-10-23 14:19] LABS: UACC Culture Trigger YES
--- NOTE | 2024-10-23 14:42 | PC.NURSE ---
pt medicated per order, rt ear bandaid applied.
[2024-10-23 14:44] VITALS: BP 108/60; PULSE 72; RESP 18; TEMP 36.8; O2SAT 98
[2024-10-23 15:22] LABS: CT PCR Urine NOT DETECTED (Not Detect.); NG PCR Urine NOT DETECTED (Not Detect.)
== END 2024-10-23 14:44 | disposition home or self-care (01) ==
PROVIDERS: Physician Assistant; Emergency Provider Emergency Medicine
DX: N39.0 Urinary tract infection, site not specified (principal); S00.451A Superficial foreign body of right ear, initial encounter; X58.XXXA Exposure to other specified factors, initial encounter; Y93.9 Activity, unspecified; Y92.9 Unspecified place or not applicable; Y99.9 Unspecified external cause status; N89.8 Other specified noninflammatory disorders of vagina; R30.0 Dysuria
CPT/HCPCS: 81001; 81025; 87086; 87491; 87591; 99284; J2003

== ENCOUNTER 2025-02-16 06:26 | Emergency (ER) | payer OTHER, SELFPAY ==
[2025-02-16 06:36] VITALS: BP 103/58; PULSE 84; RESP 18; TEMP 36.9; O2SAT 99; BMI 24.0
[2025-02-16 07:16] LABS: COVID-19 Test Negative (Negative); IDNOW Serial# 152EDE1D; IDNOW Serial# 16C4AD1C; Influenza B2 Negative (Negative)
--- NOTE | 2025-02-16 07:25 | ED_ITS ---
HPI - General Adult General Chief complaint: Upper Respiratory Symptoms Stated complaint: resp symptoms Time Seen by Provider: 02/16/25 07:23 Source: patient Mode of arrival: ambulatory Limitations: no limitations History of Present Illness ED Provider: Macey Kruse PA-C HPI narrative: Patient is a 19 year old female with no reported medical history presenting to the emergency department today with a headache, cough, and body aches. Patient states that over the last day she has felt generally unwell with a headache, cough, and body aches. Patient states that she has family members who have also been sick with similar symptoms. Patient denies any other complaints at this time. Related Data Previous Rx's ?Medication ?Instructions ?Recorded acetaminophen 500 mg tablet 500 mg PO Q6H PRN pain or fever 10/17/20 (Tylenol Extra Strength) #20 tabs ibuprofen 400 mg tablet 400 mg PO Q6H 7 days #28 tab s 10/17/20 amoxicillin 875 mg-potassium 1 tab PO Q12H 5 days #10 tabs 03/15/21 clavulanate 125 mg tablet (Augmentin) dicyclomine 20 mg tablet 20 mg PO QID PRN abdominal pain 06/02/21 #20 tabs ondansetron 4 mg disintegrating 4 mg PO Q6-8H PRN naus ea and 06/02/21 tablet vomiting #7 tabs ibuprofen 600 mg tablet 600 mg PO Q6H PRN pain #30 t abs 10/09/21 cyclobenzaprine 10 mg tablet 10 mg PO TID PRN muscle s pasm #14 10/31/21 tabs diclofenac sodium 1 % topical gel 2 g topical QID #100 grams 10/31/21 (Voltaren Arthritis Pain) cefuroxime axetil 250 mg tablet 250 mg PO Q12H #14 tab s 12/20/21 loperamide 2 mg tablet (Imodium 2 mg PO Q6H PRN loose stool #14 05/05/22 A-D) tabs ondansetron 4 mg disintegrating 4 mg PO Q6-8H PRN naus ea and 05/05/22 tablet vomiting #10 tabs nitrofurantoin 100 mg PO Q12H 5 days #10 ca ps 10/22/22 monohydrate/macrocrystals 100 mg capsule (Macrobid) phenazopyridine 200 mg tablet 200 mg PO TID PRN Burnin g with 10/22/22 (Pyridium) urination 6 doses #6 tabs cephalexin 500 mg capsule 500 mg PO Q8H 7 days #21 cap s 01/05/23 ibuprofen 400 mg tablet 400 mg PO Q6H PRN pain #20 t abs 01/05/23 cefuroxime axetil 500 mg tablet 500 mg PO BID 13 days #26 tabs 08/15/23 cefuroxime axetil 250 mg tablet 250 mg PO BID 7 days # 14 tabs 09/26/23 doxycycline hyclate 100 mg capsule 100 mg PO BID 7 day s #14 caps 09/26/23 metronidazole 500 mg tablet 500 mg PO BID 7 days #14 t abs 09/26/23 doxycycline hyclate 100 mg tablet 100 mg PO BID 7 days #14 tabs 02/17/24 fluconazole 150 mg tablet 150 mg PO Q3D 2 doses #2 tab s 02/17/24 hydroxyzine HCl 25 mg tablet 25 mg PO BID PRN anxiety #20 tabs 05/23/24 cefuroxime axetil 250 mg tablet 250 mg PO BID #14 tabs 10/23/24 ibuprofen 400 mg tablet 400 mg PO Q6H PRN fever or p ain 02/16/25 #14 tabs Allergies Allergy/AdvReac Type Severity Reaction Status Date / Time No Known Allergies Allergy Verified 02/16/25 06:37 Review of Systems Constitutional: Constitutional: Reports as per HPI Eyes: Eyes: Reports as per HPI ENT: Reports as per HPI Cardiovascular: Cardiovascular: Reports as per HPI Respiratory: Respiratory: Reports as per HPI Gastrointestinal: Gastrointestinal: Reports as per HPI Genitourinary: Genitourinary: Reports as per HPI Musculoskeletal: Musculoskeletal: Reports as per HPI Integumentary/Breasts: Skin/Breast: Reports as per HPI Neurologic: Reports as per HPI Psychiatric: Psychiatric: Reports as per HPI Endocrine: Endocrine: Reports as per HPI Hematologic/Lymphatic: Hematologic/Lymphatic: Reports as per HPI Allergic/Immunologic: Allergic/Immunologic: Reports as per HPI [facility] Past Medical History Attestation statement: The following information was validated with the patient. Source: old records reviewed and nursing notes reviewed Medical History Headache Social History Social History Alcohol intake: current Alcohol intake frequency: holidays/special occasions only Patient Tobacco Use Status: Never used Tobacco Substance Use Type: Marijuana Advance Directives: No Advance Directives Information Provided: No Physical Exam ED Vital Signs: Vital Signs - 24 hr 02/16/25 06:36 02/16/25 07:58 Temperature 98.4 F 98.4 F Pulse Rate 84 84 Respiratory Rate 18 18 Blood Pressure 103/58 L 103/58 L Pulse Oximetry 99 99 Oxygen Delivery Method Room Air Room Air BMI result Body Mass Index 24.0 Const General: cooperative, no acute distress, alert and awake Nutritional Appearance: well nourished Orientation/consciousness: patient oriented x3 HENMT Head: Yes normal to inspection and Yes atraumatic Ears: hearing grossly normal bilaterally and external ears normal General nose exam: Normal external nose present, no nasal discharge noted and no epistaxis Face and sinus: Yes normal facial exam, No abrasion and No laceration Mouth: Normal oral and palatal mucosa present, no drooling and no muffled voice Eyes General: appearance normal, both eyes and all related structures Periorbital: periorbital findings normal Eyelids: Yes eyelids normal Conjunctivae: conjunctivae normal Pupils: Equal, round and reactive pupils present EOM: EOMs intact bilaterally Neck Neck: Yes normal visual inspection and Yes full ROM Resp Effort & Inspection: normal respiratory effort and able to speak in complete sentences Neuro General: patient oriented x3, moves all extremities and CN's II-XI intact bilaterally Cranial nerves: Yes Equal, round and reactive pupils present Cognition (Neuro): normal cognition Extrem General: Yes normal to inspection, Yes full ROM and Yes capillary refill normal Psych Appearance: grossly normal Mental Status: mental status grossly normal Affect: normal affect Attitude: cooperative Thought process: Normal thought process present Thought content: Normal thought content present Insight: Good insight present (Psych) Medical Decision Making Medical Decision Making MDM Narrative: Patient is a 19 year old female with no reported medical history presenting to the emergency department today with a headache, cough, and body aches. Patient's physical exam was as noted in the physical exam portion of this note. Patient's COVID-19 and RSV testing was negative. Patient's influenza testing was positive. I explained my physical exam findings as well as all test results to the patient. I answered all questions asked by the patient. I stressed the importance of the patient taking her medication as directed (either prescribed or as the over the counter packaging recommends). I stressed the importance of the patient following up with her primary care provider. I stressed the importance of the patient returning to the emergency department immediately if her symptoms were to worsen or if she were to develop any dizziness, shortness of breath, difficulty breathing, chest pain, blurry vision, loss of vision, nausea, vomiting, abdominal pain, fever, chills, back pain, or any other complaints. Patient verbalized agreement and understanding with this treatment plan and discharge. Note: when reviewing with the patient to take over the counter tylenol + ibuprofen for fever control, she requested ibuprofen be prescribed because she did not have any at home. Differential Diagnosis Differential Diagnoses: The differential diagnosis associated with the presentation includes COVID-19 Influenza RSV Viral illness Admission/Observation Consideration of admission/observation: Escalation of care including admission/observation considered Patient would have been admitted to the hospital had her work up had any findings where hospital admission was appropriate and her clinical presentation warranted hospital admission. Lab Data [facility] Lab Attestation statement: I reviewed the patient's lab results. My interpretation of these results are in the [facility] Rationale portion of this note. Labs: Lab Results 02/16/25 Range/Units 06:41 COVID-19 (GERMÁN) Negative (Negative) COVID-19 Clin Com See Note Influenza Type A (SONALI) Positive A (Negative) Influenza Type B (SONALI) Negative (Negative) Influenza A & B Note See Note Tests considered The following testing was considered but not selected: I considered obtaining a chest x-ray however, the patient's current clinical presentation and work up did not warrant it at this time. Prescription Management I considered prescription management with: Antiviral (I considered prescribing tamiflu however, the patient's clinical presentation and lack of comorbidities did not warrant it at this time. ) Discharge Plan Discharge Clinical Impression: Influenza Patient Disposition: Home, Self-Care Instructions: Influenza (DC) Additional Instructions: Your testing today was positive for influenza. Take ibuprofen + tylenol over the counter to keep your fever down. IF you are prescribed home medications and/or you are taking over the counter medications at home - it is very important you continue to do so as prescribed / directed unless told otherwise by a healthcare provider. Follow up with your primary care provider. Do your best to stay well hydrated and rest. Return to the emergency department immediately if your symptoms worsen or if you develop any numbness, tingling, dizziness, shortness of breath, difficulty breathing, chest pain, blurry vision, loss of vision, nausea, vomiting, abdominal pain, fever, chills, back pain, or any other complaints. If you do not have a primary care provider - call any of the below numbers to establish and follow up with a primary care provider. [facility] Primary Care ([place]) [phone] [place] [address], [id number] [facility] Primary Care ([address] [place]) [phone] [place] [address], [address] [facility], [address] [facility] Primary Care ([address] [place]) [phone] [place] [address], [address] [facility], [address] [facility] Primary Care ([place]) [phone] [place] [address] [address] [facility], [address] [facility] Family Medicine [phone] [place] [address], [phone] Please see the information below about our Patient Portal. If you are not yet enrolled in the [facility] Patient Portal, you will receive an enrollment email invitation following your visit to any [facility] setting. You may also self-enroll in the Patient Portal by visiting our website: [email or web address] The following information is required to access the Patient Portal: - Your [facility] Medical Record Number - Your personal home email address (must match what is in your electronic medical record, Registration staff can assist with this) - Name - Date of Capabilities of the Patient Portal: - Message some providers - View upcoming appointments - Access your health summary, medical history, and visit history - View current conditions and allergies - View procedure and lab results - View your medications, including guidelines, side effects, and precautions - Complete pre-appointment questionnaires requested by your provider - Ready summary reports of your office visits and procedures To access the Patient Portal Mobile Santhosh, follow these directions: - Search Novel [employer] in the Santh[employer] Store or [employer] Store - Download the Santhosh - Search for [facility] - Enter your login/password Prescriptions: New ibuprofen 400 mg tablet 400 mg PO Q6H PRN (Reason: fever or pain) Qty: 14 0RF No Action acetaminophen [Tylenol Extra Strength] 500 mg tablet 500 mg PO Q6H PRN (Reason: pain or fever) Qty: 20 0RF ibuprofen 400 mg tablet 400 mg PO Q6H 7 Days Qty: 28 0RF dicyclomine 20 mg tablet 20 mg PO QID PRN (Reason: abdominal pain) Qty: 20 0RF ondansetron 4 mg tablet,disintegrating 4 mg PO Q6-8H PRN (Reason: nausea and vomiting) Qty: 7 0RF cyclobenzaprine 10 mg tablet 10 mg PO TID PRN (Reason: muscle spasm) Qty: 14 0RF diclofenac sodium [Voltaren Arthritis Pain] 1 % gel 2 g topical QID Qty: 100 0RF Rx Instructions: apply to single elbow, wrist or hand; for hand includes palm/fingers/back of hand amoxicillin-pot clavulanate [Augmentin] 875-125 mg tablet 1 tab PO Q12H 5 Days Qty: 10 0RF ibuprofen 600 mg tablet 600 mg PO Q6H PRN (Reason: pain) Qty: 30 0RF cefuroxime axetil 250 mg tablet 250 mg PO Q12H Qty: 14 0RF ondansetron 4 mg tablet,disintegrating 4 mg PO Q6-8H PRN (Reason: nausea and vomiting) Qty: 10 0RF loperamide [Imodium A-D] 2 mg tablet 2 mg PO Q6H PRN (Reason: loose stool) Qty: 14 0RF doxycycline hyclate 100 mg capsule 100 mg PO BID 7 Days Qty: 14 0RF cefuroxime axetil 250 mg tablet 250 mg PO BID 7 Days Qty: 14 0RF metronidazole 500 mg tablet 500 mg PO BID 7 Days Qty: 14 0RF fluconazole 150 mg tablet 150 mg PO Q3D Qty: 2 0RF Rx Instructions: may repeat second dose 72 hrs after first dose if symptoms persist doxycycline hyclate 100 mg tablet 100 mg PO BID 7 Days Qty: 14 0RF cefuroxime axetil 250 mg tablet 250 mg PO BID Qty: 14 0RF nitrofurantoin monohyd/m-cryst [Macrobid] 100 mg capsule 100 mg PO Q12H 5 Days Qty: 10 0RF Rx Instructions: must administer with a meal/food phenazopyridine [Pyridium] 200 mg tablet 200 mg PO TID PRN (Reason: Burning with urination) Qty: 6 0RF ibuprofen 400 mg tablet 400 mg PO Q6H PRN (Reason: pain) Qty: 20 0RF cephalexin 500 mg capsule 500 mg PO Q8H 7 Days Qty: 21 0RF cefuroxime axetil 500 mg tablet 500 mg PO BID 13 Days Qty: 26 0RF hydroxyzine HCl 25 mg tablet 25 mg PO BID PRN (Reason: anxiety) Qty: 20 0RF Stand Alone Forms: Work/School Release Interventions: ED Discharge Assessment Last Done: 02/16/25 07:58 Discharge Date/Time: 02/16/25 07:59 Print Language: Bolivian
--- OUTSIDE RECORDS SUMMARY | 2025-02-16 07:38 | XMS_ITS | Encounter Summary ---
Author Organization [facility] Address [address] [place] [address] Phone Care Team Providers Care Sailmaker Name Role Phone Provider, Deneen WILLIAM Primary Care Provider [phone] Encounter Details Date Type Department Care Team (Late st Contact Info) Description 08/27/2014 Documentation [facility] [address] [place] [address] Family Medicine, Physician [address] [place] [address] Social History Tobacco Use Types Packs/Day Years [...] on filedocumented in this encounter Care Teams Sailmaker Relationship Specialty Start Date End Date Provider, MD Deneen [address] [place] [phone] PCP - General Pediatrics 03/23/22 05/17/24 documented as of this encounter
--- OUTSIDE RECORDS SUMMARY | 2025-02-16 07:38 | XMS_ITS | Encounter Summary ---
Author Organization [facility] Address [address] [place] [address] Phone Care Team Providers Care Nuclear Physics Teacher Name Role Phone Provider, Deneen WILLIAM Primary Care Provider [phone] Encounter Details Date Type Department Care Team ([facility] Contact Info) Description 10/08/2016 Conversion Encounter [facility] - [address] [address] Social History Tobacco Use Types Packs/Day Years [...] on filedocumented in this encounter Care Teams Nuclear Physics Teacher Relationship Specialty Start Date End Date Provider, MD [address]ene[address] [place] [id number] PCP - General Pediatrics 03/23/22 05/17/24 documented as of this encounter
--- OUTSIDE RECORDS SUMMARY | 2025-02-16 07:38 | XMS_ITS | Clinical Summary ---
Author Organization [facility] [address] [place] [address] [place] [address] Phone Care Team Providers Care Steam Conditioning Operator Name Role Phone Kvng Arriaza MD Primary Care Provider Active Problems Problem Noted Date Diagnosed Date Adjustment reaction with anxiety and depression 01/06/2021 Overview (02/10/2024): + PHQ9 no SI PSC-17 S2B1 positive; incident at school last week injury to L arm ; requested mom make appt w/ BH HPA; also provided outside community supports if longterm therapy needed in the future Last Assessment & Plan: + PHQ9 no SI PSC-17 S2B1 positive; incident at school last week injury to L arm ; requested mom make appt w/ [facility] HPA; also provided outside community supports if asic design engineer therapy needed in the future Migraine with aura and witho ut status migrainosus, not intractable 08/09/2020 Overview (02/10/2024): Last Assessment & Plan: Pt continue on Topiramate which helps but set back of recent concussion w/o LOC; F/u in 1 mo or prior prn Encounters Date Type Department Care Team Description 11/27/2024 Telephone Adult Medicine [facility] [address] [place] [address] Kvng Arriaza MD from Last 3 Months Immunizations Immunization Administration Dates Next Due DTaP (Infanrix) 6wks to less than 7yo ,01/19/2005,02/19/2004,12/17 [id number] (Pediarix) 6 w ks to less than [...] on file Sexual Orientation Not on file Last Filed Vital Signs Vital Sign Reading [...] 09/01/2022 Social Influencers of Health Screening 09/01/2022 Depression Screening 02/23/2024 Cervical Cancer Screening: Pap Smear 10/15/2024 COVID-19 Vaccine ( season) 2024 04/05/2021, 07/23/2020, 07/02/2020 Influenza Vaccine (#1) 2024 , 04/02/2020, 11/23/2018, Additional history exists DTaP,Tdap,and Td Vaccines (7 - Td or Tdap) 05/28/2025 05/29/2015, 01/16/2008, 01/19/2005, Additional history exists RSV Immunization Adult Patients (1 - 1-dose 75+ series) 10/15/2078 Hepatitis B Vaccines Completed 04/17/2004, 2003, 2003 [...] patient's age to complete [place] [id number] Care Teams Steam Conditioning Operator Relationship Specialty Start Date End Date Kvng Arriaza MD [address] [place] [phone] PCP - General Internal Medicine 05/23/24
--- OUTSIDE RECORDS SUMMARY | 2025-02-16 07:38 | XMS_ITS | Clinical Summary ---
Author Organization [facility] Address [address] [place] [phone] Phone Care Team Providers Care Roller Skate Repairer Name Role Phone Unavailable Primary Care Provider [...] Date Tendonitis 10/09/2021 Overview (10/14/2021): Seen at [facility] ER s/p fall down a few stairs Generalized abdominal pain 01/09/2021 Overview (01/09/2021): 11/2020 Seen in [facility] u/s, CT scan and laabs done; ER [...] HPA; also provided outside community supports if chcf therapy needed in the future Assessment & Plan (01/06/2021 2:30 PM EST): + PHQ9 no SI PSC-17 S2B1 positive; incident at school last week injury to L arm ; requested mom make appt w/ [facility] HPA; also provided outside community supports if long filler cigar roller machine therapy needed in the future Personal history [...] PM EST): Pt under the care of [facility] senior energy consultant; 2nd appt will take place on 04/19/20 Assessment & Plan (04/02/2020 6:36 PM EST): See over view; strongly advise support which pt/mom agreed to meet [facility] Yolie Sommers for warm hand off Assessment [...] to PE; discussed importance of sleep hygiene; [facility] to assist with strategies for night time restlessness Assessment & Plan (03/26/2020 10:13 PM EST): Day/night cycle reversed; sleep hygiene is a concern that needs to be discussed ongoing dorothy with f/u in 1 week Brain concussion Overview (10/23/2020): no LOC seen 10/17/20 at [facility] s/p fall on cement while playing soccer [...] Pt seen in ER on 12/07/20 at [facility]; pt had abdominal and pelvic CT scan and u/s w/ no significant findings other than age appropriate bilat cysts/follicultes; 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 and [facility] advsied referral to [facility]; pt has not returned thus for for [...] Completed 01/06/2021, 017 Procedures * Due to [facility] law, this organization might not be sharing sensitive test results. Procedure Name Priority Date/Time Associated Diagnosis Comments CHLAMYDIA AND GONORRHEA, AMPLIFIED Routine 01/06/2021 1:34 PM EST Encounter for well child visit with abnormal findings from Last 3 Months or Most Recently Relevant to Health Maintenance Results * Due to [employer] law, this organization might not be sharing sensitive test results. * Chlamydia and Gonorrhoea, Amplified (01/06/2021 1:34 PM EST) Chlamydia Trachomatis, DNA Probe NEGATIVE (NEG) [facility] Comment: No Chlamydia Trachomatis RNA detected in this patient's sample (REFERENCE RANGE/NORMAL VALUE: NOT DETECTED) Note: This test uses motor vehicle representative- mediated amplification method to detect rRNA from C. Trachomatis URINE GC AMP PROBE NEGATIVE (NEG) [facility] Comment: No Neisseria Gonorrhoeae RNA detected in this patient's sample (REFERENCE RANGE/NORMAL VALUE: NOT DETECTED) NOTE: This test uses motor vehicle representative-mediated amplification method to detect rRNA from N.Gonorrhoeae. [...] risk of sexual abuse. Consult the [facility] if needed. Contact phone number . Therapeutic failure or success cannot be determined with the Aptima Combo2 assay since nucleic acid may persist following appropriate antimicrobial therapy. The Centers for Disease Control and Prevention (CDC) recommends confirmatory retesting using culture or a different nucleic acid amplification test when positive results occur, if indicated. Testing performed or reported by [facility], a Service of [facility], [address], [place] [address] Sina Diaz MD, Beef Trimmer [facility]# [id number] 01/06/2021 1:34 PM EST 01/06/2021 10:38 PM EST Karen Delacruz NP LAB MICROBIOLOGY - GENERAL ORDER DELANO Final Result [facility] from Last 3 Months or Most Recently Relevant to Health Maintenance
[2025-02-16 07:58] VITALS: BP 103/58; PULSE 84; RESP 18; TEMP 36.9; O2SAT 99
== END 2025-02-16 07:59 | disposition home or self-care (01) ==
PROVIDERS: Emergency Provider Emergency Medicine
DX: J10.1 Influenza due to other identified influenza virus with other respiratory manifestations (principal); R51.9 Headache, unspecified; R05.9 Cough, unspecified; M79.10 Myalgia, unspecified site
CPT/HCPCS: 87502; 87635; 99282; 99283